=== PATIENT | male | born 1940 | race Caucasian/White ===

== ENCOUNTER 2020-08-20 08:53 | Emergency (ER) | payer OTHER, MEDICARE, SELFPAY ==
--- NOTE | ~2020-08-20 | CT_ITS ---
EXAMINATION: CT CERVICAL SPINE WITHOUT CONTRAST CLINICAL INFORMATION: Neck pain COMPARISON: None TECHNIQUE: Axial images through the cervical spine without contrast. Sagittal and coronal reconstructions on the technologist workstation were performed. This CT examination was performed using dose optimization techniques as appropriate, variously including the following: *Automated exposure control *Adjustment of mA and/or kV according to patient size (this includes techniques or standardized protocols for targeted exams where dose is matched to indication/reason for exam; i.e. extremities or head) *Use of iterative reconstruction technique DLP: 264 mGy-cm FINDINGS: Bone alignment is normal. No fracture or dislocation is seen. There is evidence of mild degenerative spondylosis at C5-C6 and C6-C7. There are degenerative changes at the C1 dens articulation. Prevertebral soft tissues are normal. There is bilateral carotid calcification. Visualized lung apices are clear. Spinal levels: C2-C3: No disc herniation protrusion or bulge. No spinal stenosis. C3-C4: There is mild disc bulge. No disc herniation is seen. No spinal stenosis. C4-C5: There is mild disc bulge. No disc herniation is seen. No spinal stenosis. C5-C6: There is diffuse disc bulge/disc osteophyte complex seen at C5-C6 No spinal stenosis is seen. C6-C7: There is diffuse disc bulge/disc osteophyte complex at C6-C7. No disc herniation is seen. No spinal stenosis. C7-T1: No disc herniation protrusion or bulge. No spinal stenosis. CT/CT cervical spine wo con IMPRESSION: Multilevel disc bulge, greatest at C5-C6 and C6-C7 with disc osteophyte complex. No disc herniation or spinal stenosis seen.
--- NOTE | 2020-08-20 09:18 | ED.NECK ---
HPI - Neck Pain/Injury General Chief Complaint: Neck Pain/Injury Stated Complaint: STIFF NECK PAIN Time Seen by Provider: 08/20/20 09:12 Source: patient Mode of arrival: ambulatory Limitations: no limitations History of Present Illness HPI Narrative: 79 yo male with hx of cellulitis comes in with 1 week of neck pain after sleeping in a friend's chair - he helped move many things and has been sleeping upright with his head slumped forward, states he cant take the pain any longer, no UE numbness/tingling complaint: neck pain Onset (ago): day(s) (7) Place: home Radiation: left lateral Severity: moderate and constant Quality: spasming Duration: constant Relieving factors: none Exacerbating factors: movement of neck Context: other (sleeping upright in a recliner after helping his friend move) Associated symptoms: other (mild leg swelling) Treatments prior to arrival: none Related Data Previous Rx's Medication Instructions Recorded cyclobenzaprine 10 mg PO TID PRN #14 tab 08/20/20 lidocaine 1 patch TOPICAL DAILY PRN #10 ea 08/20/20 Allergies Allergy/AdvReac Type Severity Reaction Status Date / Time No Known Allergies Allergy Unverified 01/01/20 15:07 Review of Systems Review of Systems: Constitutional : No Fever, No Chills ENT/Mouth : No Ear Pain, No Hoarseness, No sore throat, pos neck pain Eyes: No Eye Pain, No Swelling, No Redness, No Foreign Body Cardiovascular : No Chest Pain, No SOB, pos edema Respiratory : No Cough, No Dyspnea Gastrointestinal : No Nausea, No Vomiting, No Diarrhea, No abdominal Pain Genitourinary : No Dysuria, No Hematuria Musculoskeletal : no joint pain, No Myalgias, No Joint Swelling Skin : No Skin lacerations, No rash Neuro : No Weakness, No Numbness, No Loss of Consciousness, No Dizziness, No Headache Psych : No Anxiety/Panic, No Depression Heme/Lymph: no easy bruising, no Lymphadenopathy Endocrine : No Polyuria, No Polydipsia All other systems reviewed and are negative [facility] Past Medical History Attestation statement: The following information was validated with the patient. Medical History Cellulitis Social History Social History (Updated 08/20/20 @ 09:29 by Batsheva Thompson DO) Alcohol intake: never Smoking Status: Never smoker Use of substances other than those prescribed or required for medical reasons: No Advance Directives: Yes Advance Directives Information Provided: Yes Advance Directives on File: No Physical Exam Vital Signs: Vital Signs: Last Vital Signs Temp 98.1 F 08/20/20 09:21 Pulse 80 08/20/20 09:21 Resp 16 08/20/20 09:21 BP 156/93 H 08/20/20 09:21 Pulse Ox 99 08/20/20 09:21 Body Mass Index 31.8 Appearance: Alert. Oriented X3. No acute distress. Eyes: Pupils equal, round and reactive to light. ENT: Pharynx normal. Neck: leaning forward, no step offs, spasm felt on L side of cervical spine CVS: Normal heart rate and rhythm. Pulses normal. Respiratory: No respiratory distress. Breath sounds normal. Abdomen: Soft and nontender. Skin: Skin warm and dry. Normal skin color. Normal skin turgor. Extremities: mild 1+ pitting bilateral lower extremity edema. No calf ttp Neuro: Oriented X 3. No motor deficit. No sensory deficit. bilateral UE NV intact Course Course Course Narrative: CM involved can be DC home plan is for yeni to go home and sleep at his own home MDM - Neck Pain/Injury MDM Narrative Medical decision making narrative: 79 yo male with hx of cellulitis comes in with 1 week of neck pain after sleeping in a friend's chair - he helped move many things and has been sleeping upright with his head slumped forward, states he cant take the pain any longer, no UE numbness/tingling at this time will obtain basic labs, CT scan for mass/occult fracture likely spasm though from the way he is sleeping, PO pain medications, patient also has some mild LE dependent edema but denies dyspnea - again likely from his sleeping arrangement Lab Data Result diagrams: 08/20/20 09:34 08/20/20 09:34 Labs: Lab Results 08/20/20 08/20/20 08/20/20 Range/Units 09:34 09:34 09:34 WBC 10.3 (4.8-10.8) X10*3/uL RBC 3.12 L (4.60-5.80) X10*6/uL Hgb 10.1 L (14.0-18.0) g/dl Hct 31.8 L (42-52) % MCV 101.9 H (80-98) fL MCH 32.4 (27.0-33.0) pg MCHC 31.8 (31.0-36.0) g/dl RDW 15.2 (11.0-16.0) % Plt Count 231 (160-400) X10*3/uL MPV 9.5 (9.4-12.4) fL Immature Gran % (Auto) 0.5 H (0.0-0.4) % Neut % (Auto) 60.3 (45-73) % Lymph % (Auto) 23.2 (20-40) % [place] % (Auto) 10.8 (2-11) % Eos % (Auto) 4.8 H (0-4) % Baso % (Auto) 0.4 (0-2) % Lymph # (Auto) 2.4 (1.2-4.9) X10*3/uL [place] # (Auto) 1.1 (0.1-1.2) X10*3/uL Eos # (Auto) 0.5 H (0.0-0.4) X10*3/uL Baso # (Auto) 0.0 (0.0-0.2) X10*3/uL Abs Immat Gran (auto) 0.05 H (0.00-0.03) X10*3/uL Absolute Neuts (auto) 6.2 (2.0-8.3) X10*3/uL Absolute Nucleated RBC 0.000 (0.0-0.012) X10*3/uL Nucleated RBC % (auto) 0.0 (0.0-0.2) /100WBC Hold Blue Top SEE NOTE Sodium 138 (135-145) mmol/L Potassium 4.5 (3.3-5.1) mmol/L Chloride 105 (96-108) mmol/L Carbon Dioxide 24 (22-29) mmol/L Anion Gap 14 (12-20) BUN 23 H (9-16) mg/dL Creatinine 1.27 (0.5-1.4) mg/dL Estim Creat Clear Calc 38.4 Estimated GFR 54 Random Glucose 111 (60-115) mg/dL Calcium 8.8 (8.4-10.2) mg/dL Magnesium 2.0 (1.6-2.6) mg/dL Total Bilirubin 0.5 (0.0-1.0) mg/dL Direct Bilirubin 0.2 (0.0-0.5) mg/dL AST 55 H (5-37) U/L ALT 32 (0-40) U/L Alkaline Phosphatase 94 (39-117) U/L B-Natriuretic Peptide (<100) pg/mL Total Protein 7.8 (6.5-8.0) g/dL Albumin 3.6 (3.5-5.0) g/dL 08/20/20 Range/Units 09:34 WBC (4.8-10.8) X10*3/uL RBC (4.60-5.80) X10*6/uL Hgb (14.0-18.0) g/dl Hct (42-52) % MCV (80-98) fL MCH (27.0-33.0) pg MCHC (31.0-36.0) g/dl RDW (11.0-16.0) % Plt Count (160-400) X10*3/uL MPV (9.4-12.4) fL Immature Gran % (Auto) (0.0-0.4) % Neut % (Auto) (45-73) % Lymph % (Auto) (20-40) % [place] % (Auto) (2-11) % Eos % (Auto) (0-4) % Baso % (Auto) (0-2) % Lymph # (Auto) (1.2-4.9) X10*3/uL [place] # (Auto) (0.1-1.2) X10*3/uL Eos # (Auto) (0.0-0.4) X10*3/uL Baso # (Auto) (0.0-0.2) X10*3/uL Abs Immat Gran (auto) (0.00-0.03) X10*3/uL Absolute Neuts (auto) (2.0-8.3) X10*3/uL Absolute Nucleated RBC (0.0-0.012) X10*3/uL Nucleated RBC % (auto) (0.0-0.2) /100WBC Hold Blue Top Sodium (135-145) mmol/L Potassium (3.3-5.1) mmol/L Chloride (96-108) mmol/L Carbon Dioxide (22-29) mmol/L Anion Gap (12-20) BUN (9-16) mg/dL Creatinine (0.5-1.4) mg/dL Estim Creat Clear Calc Estimated GFR Random Glucose (60-115) mg/dL Calcium (8.4-10.2) mg/dL Magnesium (1.6-2.6) mg/dL Total Bilirubin (0.0-1.0) mg/dL Direct Bilirubin (0.0-0.5) mg/dL AST (5-37) U/L ALT (0-40) U/L Alkaline Phosphatase (39-117) U/L B-Natriuretic Peptide 183 H (<100) pg/mL Total Protein (6.5-8.0) g/dL Albumin (3.5-5.0) g/dL Discharge Plan Discharge Clinical Impression: Disc disorder of cervical region, Pedal edema Strain of neck muscle Qualifiers: Encounter type: initial encounter Qualified Code(s): S16.1XXA - Strain of muscle, fascia and tendon at neck level, initial encounter Patient Disposition: Home, Self-Care Instructions: Leg Edema (ED), Degenerative Disc Disease (ED) Additional Instructions: return to ED for any worsening symptoms or concerns KEEP YOUR LEGS ELEVATED STOP SLEEPING IN A CHAIR Prescriptions: New cyclobenzaprine 10 mg tablet 10 mg PO TID PRN (Reason: muscle spasm) Qty: 14 RF: 0 lidocaine 4 % adhesive patch,medicated 1 patch topical DAILY PRN (Reason: pain) Qty: 10 RF: 0 Referrals: Lebron Gifford MD [Primary Care Provider] - 5 days (IF NOT BETTER)
[2020-08-20 09:21] VITALS: BP 156/93; PULSE 80; RESP 16; TEMP 36.7; O2SAT 99; BMI 31.8
[2020-08-20 09:37] LABS: MANUAL DIFF FLAG NO
[2020-08-20 09:41] LABS: Basophils Percent Auto 0.4 % (0-2); Eosinophils Absolute Auto 0.5 X10*3/uL (0.0-0.4); Eosinophils Percent Auto 4.8 % (0-4); Hematocrit 31.8 % (42-52); Hemoglobin 10.1 g/dl (14.0-18.0); Imm Gran Abs Auto 0.05 X10*3/uL (0.00-0.03); Imm Gran Pct Auto 0.5 % (0.0-0.4); Lymphocytes Absolute Auto 2.4 X10*3/uL (1.2-4.9); Lymphocytes Percent Auto 23.2 % (20-40); Mean Corpuscular HGB Conc 31.8 g/dl (31.0-36.0); Mean Corpuscular Hemoglobin 32.4 pg (27.0-33.0); Mean Corpuscular Volume 101.9 fL (80-98); Mean Platelet Volume 9.5 fL (9.4-12.4); Monocytes Absolute Auto 1.1 X10*3/uL (0.1-1.2); Monocytes Percent Auto 10.8 % (2-11); Neutrophils Absolute Auto 6.2 X10*3/uL (2.0-8.3); Neutrophils Percent Auto 60.3 % (45-73); Platelet Count 231 X10*3/uL (160-400); Red Blood Count 3.12 X10*6/uL (4.60-5.80); Red Cell Distribution Width 15.2 % (11.0-16.0); White Blood Count 10.3 X10*3/uL (4.8-10.8)
[2020-08-20] MEDS: Lidocaine 4 % Patch ADH..PATCH 1 PATCH TRANSDERMA (09:51)
[2020-08-20] MEDS: HYDROcodone Bit/Acetam 5/325 TABLET 1 TAB PO (09:51)
[2020-08-20 10:04] LABS: Alanine Aminotransferase 32 U/L (0-40); Albumin Level 3.6 g/dL (3.5-5.0); Alkaline Phosphatase 94 U/L (39-117); Anion Gap 14 (12-20); Aspartate Amino Transferase 55 U/L (5-37); Bilirubin Direct 0.2 mg/dL (0.0-0.5); Bilirubin Total 0.5 mg/dL (0.0-1.0); Blood Urea Nitrogen 23 mg/dL (9-16); Calcium 8.8 mg/dL (8.4-10.2); Carbon Dioxide 24 mmol/L (22-29); Chloride 105 mmol/L (96-108); Creatinine Clr Calc Pharmacy 38.4; Estimated Glomerular Filt Rate 54; Glucose Random 111 mg/dL (60-115); Potassium 4.5 mmol/L (3.3-5.1); Sodium 138 mmol/L (135-145); Total Protein 7.8 g/dL (6.5-8.0)
[2020-08-20 10:10] LABS: B Type Natriuretic Peptide 183 pg/mL (<100)
== END 2020-08-20 12:10 | disposition home or self-care (01) ==
PROVIDERS: Emergency Provider Emergency Medicine; PCP Internal Medicine
DX: M50.31 Other cervical disc degeneration, high cervical region (principal); R60.0 Localized edema; S16.1XXA Strain of muscle, fascia and tendon at neck level, initial encounter; X50.1XXA Overexertion from prolonged static or awkward postures, initial encounter; Y93.84 Activity, sleeping; Y92.019 Unspecified place in single-family (private) house as the place of occurrence of the external cause; Y99.9 Unspecified external cause status
CPT/HCPCS: 36415; 72125; 80048; 80076; 83735; 83880; 85025; 99284

== ENCOUNTER 2020-08-24 21:31 | Emergency (ER) | payer OTHER, MEDICARE, SELFPAY ==
[2020-08-24 22:03] VITALS: BP 114/80; BP 138/81; PULSE 103; PULSE 110; RESP 18; TEMP 36.8; O2SAT 100; O2SAT 96; BMI 23.6
[2020-08-24 22:07] LABS: Glucose, Whole Blood 117 mg/dL (60-115)
[2020-08-24 22:09] VITALS: BP 138/81; PULSE 102; RESP 18; TEMP 36.8; O2SAT 97
--- NOTE | 2020-08-24 22:37 | PC.NURSE ---
PT SON, GRETTA, PHONE NUMBER [phone]
--- NOTE | 2020-08-24 22:38 | ECG_ITS ---
Test Reason : AMS Blood Pressure : / mmHG Vent. Rate : 096 BPM Atrial Rate : 096 BPM P-R Int : 198 ms QRS Dur : 136 ms QT Int : 408 ms P-R-T Axes : 044 -23 109 degrees QTc Int : 515 ms Normal sinus rhythm Left bundle branch block Abnormal ECG No previous ECGs available Referred By: Laureen Mendiola Electronically Signed By:Robert Sampson
--- NOTE | 2020-08-24 22:41 | ED_ITS ---
HPI - General Adult General Chief complaint: General Medical Stated complaint: WEAKNESS Time Seen by Provider: 08/24/20 22:19 Source: patient Mode of arrival: EMS Limitations: no limitations History of Present Illness HPI narrative: Patient comes to emergency room complaining of generalized weakness and a fall. Patient states that over last few days, he has been helping a friend move of his apartment, has been carrying boxes, has not been eating well. Patient states this afternoon, patient was walking, tripped, fell to the ground, did not hit his head, did not lose consciousness. Patient had a hard time getting up by himself, states he was feeling weak, denies pain. Patient denies being on blood thinners. Patient denies using drugs. Patient states that he has left-sided neck pain, he was seen here on August 20, diagnosed with muscular strain, patient has been sleeping in a friend's house on the chair , denies any trauma. Related Data Previous Rx's Medication Instructions Recorded cyclobenzaprine 10 mg PO TID PRN #14 tab 08/20/20 lidocaine 1 patch TOPICAL DAILY PRN #10 ea 08/20/20 cephalexin [Keflex] 750 mg PO BID #14 cap 08/25/20 doxycycline hyclate 100 mg PO DAILY #14 tab 08/25/20 Allergies Allergy/AdvReac Type Severity Reaction Status Date / Time No Known Allergies Allergy Verified 08/24/20 22:03 Review of Systems Review of Systems: Constitutional : Denies Fever, No Chills, No Night Sweats, complaining of generalized weakness ENT/Mouth : No Hearing loss, No Ear Pain, No Nasal Congestion, No Sinus Pain, No Hoarseness, No sore throat, No Rhinorrhea, No Swallowing Difficulty Eyes: No Eye Pain, No Swelling, No Redness, No Foreign Body, No Discharge, No Vision Changes Cardiovascular : No Chest Pain, No SOB, No Dyspnea on Exertion, No Orthopnea, complaining of chronic bilateral lower extremity edema, No Palpitations Respiratory : No Cough, No Sputum, No Wheezing, No Smoke Exposure, No Dyspnea Gastrointestinal : No Nausea, No Vomiting, No Diarrhea, No Constipation, No abdominal Pain, No Hematochezia, No Melena Genitourinary : no irregular bleeding, No Dysuria, No Urinary Frequency, No Hematuria, No Urinary Incontinence, No Urgency, No Flank Pain, No Urinary Flow Changes, No Hesitancy Musculoskeletal : No joint pain, No Myalgias, No Joint Swelling Skin : No Skin Lesions, No rash Neuro : No Weakness, No Numbness, No Paresthesias, No Loss of Consciousness, No Dizziness, No Headache Psych : No Anxiety/Panic, No Depression, No SI/HI/AH/VH, No Social Issues, Heme/Lymph: No Bruising, No Bleeding,No Lymphadenopathy Endocrine : No Polyuria, No Polydipsia, No Temperature Intolerance [facility] Past Medical History Medical History Cellulitis Social History Social History (Updated 08/20/20 @ 09:29 by Batsheva Thompson DO) Alcohol intake: former Smoking Status: Never smoker Use of substances other than those prescribed or required for medical reasons: No Advance Directives: No Advance Directives Information Provided: Yes Physical Exam Vital Signs: Vital Signs: Last Vital Signs Temp 97.2 F 08/24/20 23:46 Pulse 80 08/25/20 03:26 Resp 16 08/25/20 03:26 BP 115/69 08/25/20 03:26 Pulse Ox 97 08/25/20 03:26 Body Mass Index 23.6 Appearance: Alert. Oriented X3. No acute distress. Disheveled Eyes: Pupils equal, round and reactive to light. ENT: Pharynx normal. Neck: Normal inspection. Neck supple. Mild pain to palpation over the left sternocleidomastoid muscle CVS: Normal heart rate and rhythm. Pulses normal. Normal S1 and S2 Respiratory: No respiratory distress. Breath sounds normal. No Wheezing. No rales Abdomen: Soft and nontender. No rigidity. No distention. good BS x4 Skin: Skin warm and dry. Normal skin color. Normal skin turgor. Extremities: +1 bilateral pitting edema, bilateral lower extremity skin changes per patient at baseline/chronic fungal infection per patient? No Lacerations. Neuro: Oriented X 3. No motor deficit. No sensory deficit. Moving all extermities. No slurred speech. Course Course Course Narrative: Physician observation started that for 20 in the morning. Patient's nurse attempted weakening of the patient to see if the patient is ambulatory. Patient does wake up, but he is too somnolent and somewhat confused when walking up. Ambulation was not attempted. Patient has a troponin pending at 06:30 in the morning. Patient is otherwise stable, normal vitals. Patient is alert and oriented x3, states that he does not want to be seen by case management or by physical therapy. Patient would like to be discharged patient's son was at bedside earlier today, the son agrees to machine operator picker the patient and give him a ride home. Pt received one dose of doxy and keflex, which was entered by mistake in pt's orders. Cellulitis not suspected Trop #2 pending, pt is asymptomatic Patient's nurse and I try walking with the patient, patient states that his legs are very weak, stumbles. Unsafe to discharge. Patient agrees to be seen by Physical therapy and Case Management. Sign out given to Dr. Oliveira Medical Decision Making Lab Data Result diagrams: 08/24/20 22:52 08/25/20 03:37 Labs: Lab Results 08/24/20 08/24/20 08/24/20 Range/Units 22:01 22:52 22:52 WBC 7.4 (4.8-10.8) X10*3/uL RBC 3.07 L (4.60-5.80) X10*6/uL Hgb 9.8 L (14.0-18.0) g/dl Hct 30.2 L (42-52) % MCV 98.4 H (80-98) fL MCH 31.9 (27.0-33.0) pg MCHC 32.5 (31.0-36.0) g/dl RDW 14.3 (11.0-16.0) % Plt Count 240 (160-400) X10*3/uL MPV 9.3 L (9.4-12.4) fL Immature Gran % (Auto) 0.8 H (0.0-0.4) % Neut % (Auto) 62.6 (45-73) % Lymph % (Auto) 21.4 (20-40) % [place] % (Auto) 10.5 (2-11) % Eos % (Auto) 4.3 H (0-4) % Baso % (Auto) 0.4 (0-2) % Lymph # (Auto) 1.6 (1.2-4.9) X10*3/uL [place] # (Auto) 0.8 (0.1-1.2) X10*3/uL Eos # (Auto) 0.3 (0.0-0.4) X10*3/uL Baso # (Auto) 0.0 (0.0-0.2) X10*3/uL Abs Immat Gran (auto) 0.06 H (0.00-0.03) X10*3/uL Absolute Neuts (auto) 4.6 (2.0-8.3) X10*3/uL Absolute Nucleated RBC 0.000 (0.0-0.012) X10*3/uL Nucleated RBC % (auto) 0.0 (0.0-0.2) /100WBC Sodium 134 L (135-145) mmol/L Potassium 4.6 (3.3-5.1) mmol/L Chloride 99 (96-108) mmol/L Carbon Dioxide 23 (22-29) mmol/L Anion Gap 17 (12-20) BUN 35 H D (9-16) mg/dL Creatinine 1.52 H (0.5-1.4) mg/dL Estim Creat Clear Calc 39.3 Estimated GFR 44 POC Glucose 117 H (60-115) mg/dL Random Glucose 100 (60-115) mg/dL Calcium 8.9 (8.4-10.2) mg/dL Total Bilirubin 0.4 (0.0-1.0) mg/dL Direct Bilirubin 0.3 (0.0-0.5) mg/dL AST 29 D (5-37) U/L ALT 29 (0-40) U/L Alkaline Phosphatase 80 (39-117) U/L Troponin I High Sens (<3.5-35.0) ng/L B-Natriuretic Peptide (<100) pg/mL Total Protein 7.5 (6.5-8.0) g/dL Albumin 3.5 (3.5-5.0) g/dL TSH (0.32-4.0) uIU/mL Free T4 (0.71-1.85) ng/dL Urine Color Urine Appearance Urine pH (5.0-8.0) Ur Specific [place] (1.005-1.025) Urine Protein (NEG-TRACE) MG/DL Urine Glucose (UA) (NEG) MG/DL Urine Ketones (NEG) MG/DL Urine Blood (NEG) Urine Nitrite (NEG) Ur Leukocyte Esterase (NEG) Stool Occult Blood (NEGATIVE) Urine Opiates Screen (Not Detect) Ur Barbiturates Screen (Not Detect) Ur Phencyclidine Scrn (Not Detect) Ur Amphetamines Screen (Not Detect) U Benzodiazepines Scrn (Not Detect) Urine Cocaine Screen (Not Detect) U Marijuana (THC) Screen (Not Detect) Ethyl Alcohol mg/dL 08/24/20 08/24/20 08/24/20 Range/Units 22:52 22:52 22:52 WBC (4.8-10.8) X10*3/uL RBC (4.60-5.80) X10*6/uL Hgb (14.0-18.0) g/dl Hct (42-52) % MCV (80-98) fL MCH (27.0-33.0) pg MCHC (31.0-36.0) g/dl RDW (11.0-16.0) % Plt Count (160-400) X10*3/uL MPV (9.4-12.4) fL Immature Gran % (Auto) (0.0-0.4) % Neut % (Auto) (45-73) % Lymph % (Auto) (20-40) % [place] % (Auto) (2-11) % Eos % (Auto) (0-4) % Baso % (Auto) (0-2) % Lymph # (Auto) (1.2-4.9) X10*3/uL [place] # (Auto) (0.1-1.2) X10*3/uL Eos # (Auto) (0.0-0.4) X10*3/uL Baso # (Auto) (0.0-0.2) X10*3/uL Abs Immat Gran (auto) (0.00-0.03) X10*3/uL Absolute Neuts (auto) (2.0-8.3) X10*3/uL Absolute Nucleated RBC (0.0-0.012) X10*3/uL Nucleated RBC % (auto) (0.0-0.2) /100WBC Sodium (135-145) mmol/L Potassium (3.3-5.1) mmol/L Chloride (96-108) mmol/L Carbon Dioxide (22-29) mmol/L Anion Gap (12-20) BUN (9-16) mg/dL Creatinine (0.5-1.4) mg/dL Estim Creat Clear Calc Estimated GFR POC Glucose (60-115) mg/dL Random Glucose (60-115) mg/dL Calcium (8.4-10.2) mg/dL Total Bilirubin (0.0-1.0) mg/dL Direct Bilirubin (0.0-0.5) mg/dL AST (5-37) U/L ALT (0-40) U/L Alkaline Phosphatase (39-117) U/L Troponin I High Sens (<3.5-35.0) ng/L B-Natriuretic Peptide 155 H (<100) pg/mL Total Protein (6.5-8.0) g/dL Albumin (3.5-5.0) g/dL TSH 11.00 H (0.32-4.0) uIU/mL Free T4 1.11 (0.71-1.85) ng/dL Urine Color Urine Appearance Urine pH (5.0-8.0) Ur Specific [place] (1.005-1.025) Urine Protein (NEG-TRACE) MG/DL Urine Glucose (UA) (NEG) MG/DL Urine Ketones (NEG) MG/DL Urine Blood (NEG) Urine Nitrite (NEG) Ur Leukocyte Esterase (NEG) Stool Occult Blood (NEGATIVE) Urine Opiates Screen (Not Detect) Ur Barbiturates Screen (Not Detect) Ur Phencyclidine Scrn (Not Detect) Ur Amphetamines Screen (Not Detect) U Benzodiazepines Scrn (Not Detect) Urine Cocaine Screen (Not Detect) U Marijuana (THC) Screen (Not Detect) Ethyl Alcohol < 10 mg/dL 08/25/20 08/25/20 08/25/20 Range/Units 00:00 00:00 00:00 WBC (4.8-10.8) X10*3/uL RBC (4.60-5.80) X10*6/uL Hgb (14.0-18.0) g/dl Hct (42-52) % MCV (80-98) fL MCH (27.0-33.0) pg MCHC (31.0-36.0) g/dl RDW (11.0-16.0) % Plt Count (160-400) X10*3/uL MPV (9.4-12.4) fL Immature Gran % (Auto) (0.0-0.4) % Neut % (Auto) (45-73) % Lymph % (Auto) (20-40) % [place] % (Auto) (2-11) % Eos % (Auto) (0-4) % Baso % (Auto) (0-2) % Lymph # (Auto) (1.2-4.9) X10*3/uL [place] # (Auto) (0.1-1.2) X10*3/uL Eos # (Auto) (0.0-0.4) X10*3/uL Baso # (Auto) (0.0-0.2) X10*3/uL Abs Immat Gran (auto) (0.00-0.03) X10*3/uL Absolute Neuts (auto) (2.0-8.3) X10*3/uL Absolute Nucleated RBC (0.0-0.012) X10*3/uL Nucleated RBC % (auto) (0.0-0.2) /100WBC Sodium (135-145) mmol/L Potassium (3.3-5.1) mmol/L Chloride (96-108) mmol/L Carbon Dioxide (22-29) mmol/L Anion Gap (12-20) BUN (9-16) mg/dL Creatinine (0.5-1.4) mg/dL Estim Creat Clear Calc Estimated GFR POC Glucose (60-115) mg/dL Random Glucose (60-115) mg/dL Calcium (8.4-10.2) mg/dL Total Bilirubin (0.0-1.0) mg/dL Direct Bilirubin (0.0-0.5) mg/dL AST (5-37) U/L ALT (0-40) U/L Alkaline Phosphatase (39-117) U/L Troponin I High Sens (<3.5-35.0) ng/L B-Natriuretic Peptide (<100) pg/mL Total Protein (6.5-8.0) g/dL Albumin (3.5-5.0) g/dL TSH (0.32-4.0) uIU/mL Free T4 (0.71-1.85) ng/dL Urine Color YELLOW Urine Appearance CLEAR Urine pH 6.0 (5.0-8.0) Ur Specific [place] 1.020 (1.005-1.025) Urine Protein NEG (NEG-TRACE) MG/DL Urine Glucose (UA) NEG (NEG) MG/DL Urine Ketones 5 (NEG) MG/DL Urine Blood NEG (NEG) Urine Nitrite NEG (NEG) Ur Leukocyte Esterase NEG (NEG) Stool Occult Blood NEGATIVE (NEGATIVE) Urine Opiates Screen Not Detected (Not Detect) Ur Barbiturates Screen Not Detected (Not Detect) Ur Phencyclidine Scrn Not Detected (Not Detect) Ur Amphetamines Screen Not Detected (Not Detect) U Benzodiazepines Scrn Not Detected (Not Detect) Urine Cocaine Screen Not Detected (Not Detect) U Marijuana (THC) Screen Not Detected (Not Detect) Ethyl Alcohol mg/dL 08/25/20 08/25/20 Range/Units 03:37 03:37 WBC (4.8-10.8) X10*3/uL RBC (4.60-5.80) X10*6/uL Hgb (14.0-18.0) g/dl Hct (42-52) % MCV (80-98) fL MCH (27.0-33.0) pg MCHC (31.0-36.0) g/dl RDW (11.0-16.0) % Plt Count (160-400) X10*3/uL MPV (9.4-12.4) fL Immature Gran % (Auto) (0.0-0.4) % Neut % (Auto) (45-73) % Lymph % (Auto) (20-40) % [place] % (Auto) (2-11) % Eos % (Auto) (0-4) % Baso % (Auto) (0-2) % Lymph # (Auto) (1.2-4.9) X10*3/uL [place] # (Auto) (0.1-1.2) X10*3/uL Eos # (Auto) (0.0-0.4) X10*3/uL Baso # (Auto) (0.0-0.2) X10*3/uL Abs Immat Gran (auto) (0.00-0.03) X10*3/uL Absolute Neuts (auto) (2.0-8.3) X10*3/uL Absolute Nucleated RBC (0.0-0.012) X10*3/uL Nucleated RBC % (auto) (0.0-0.2) /100WBC Sodium 133 L (135-145) mmol/L Potassium 4.0 (3.3-5.1) mmol/L Chloride 103 (96-108) mmol/L Carbon Dioxide 22 (22-29) mmol/L Anion Gap 12 (12-20) BUN 32 H (9-16) mg/dL Creatinine 1.28 (0.5-1.4) mg/dL Estim Creat Clear Calc 46.7 Estimated GFR 54 POC Glucose (60-115) mg/dL Random Glucose 95 (60-115) mg/dL Calcium 7.9 L D (8.4-10.2) mg/dL Total Bilirubin (0.0-1.0) mg/dL Direct Bilirubin (0.0-0.5) mg/dL AST (5-37) U/L ALT (0-40) U/L Alkaline Phosphatase (39-117) U/L Troponin I High Sens 23.5 (<3.5-35.0) ng/L B-Natriuretic Peptide (<100) pg/mL Total Protein (6.5-8.0) g/dL Albumin (3.5-5.0) g/dL TSH (0.32-4.0) uIU/mL Free T4 (0.71-1.85) ng/dL Urine Color Urine Appearance Urine pH (5.0-8.0) Ur Specific [place] (1.005-1.025) Urine Protein (NEG-TRACE) MG/DL Urine Glucose (UA) (NEG) MG/DL Urine Ketones (NEG) MG/DL Urine Blood (NEG) Urine Nitrite (NEG) Ur Leukocyte Esterase (NEG) Stool Occult Blood (NEGATIVE) Urine Opiates Screen (Not Detect) Ur Barbiturates Screen (Not Detect) Ur Phencyclidine Scrn (Not Detect) Ur Amphetamines Screen (Not Detect) U Benzodiazepines Scrn (Not Detect) Urine Cocaine Screen (Not Detect) U Marijuana (THC) Screen (Not Detect) Ethyl Alcohol mg/dL ECG Data Attestation: I personally reviewed and interpreted this ECG as follows: (Centered rhythm, heart rate 96, left bundle branch block, QTC 515, no previous EKGs available for comparison) Discharge Plan Discharge Clinical Impression: Weakness Prescriptions: New doxycycline hyclate 100 mg tablet 100 mg PO DAILY Qty: 14 RF: 0 cephalexin [Keflex] 750 mg capsule 750 mg PO BID Qty: 14 RF: 0 No Action cyclobenzaprine 10 mg tablet 10 mg PO TID PRN (Reason: muscle spasm) Qty: 14 RF: 0 lidocaine 4 % adhesive patch,medicated 1 patch topical DAILY PRN (Reason: pain) Qty: 10 RF: 0
[2020-08-24 22:49] VITALS: BP 149/90; PULSE 98; RESP 12; O2SAT 98
--- NOTE | 2020-08-24 22:52 | PC.NURSE ---
Pt son at bedside, EKG and labs currently being obtained. Pt IVF administered as ordered. Pt stretcher in lowest locked position, rails raised, call davis within reach.
[2020-08-24] MEDS: 0.9 % Sodium Chloride 1,000 ML 999 ML IVCONT (22:53)
[2020-08-24 22:58] LABS: MANUAL DIFF FLAG NO
[2020-08-24 22:59] LABS: Basophils Percent Auto 0.4 % (0-2); Eosinophils Absolute Auto 0.3 X10*3/uL (0.0-0.4); Eosinophils Percent Auto 4.3 % (0-4); Hematocrit 30.2 % (42-52); Hemoglobin 9.8 g/dl (14.0-18.0); Imm Gran Abs Auto 0.06 X10*3/uL (0.00-0.03); Imm Gran Pct Auto 0.8 % (0.0-0.4); Lymphocytes Absolute Auto 1.6 X10*3/uL (1.2-4.9); Lymphocytes Percent Auto 21.4 % (20-40); Mean Corpuscular HGB Conc 32.5 g/dl (31.0-36.0); Mean Corpuscular Hemoglobin 31.9 pg (27.0-33.0); Mean Corpuscular Volume 98.4 fL (80-98); Mean Platelet Volume 9.3 fL (9.4-12.4); Monocytes Absolute Auto 0.8 X10*3/uL (0.1-1.2); Monocytes Percent Auto 10.5 % (2-11); Neutrophils Absolute Auto 4.6 X10*3/uL (2.0-8.3); Neutrophils Percent Auto 62.6 % (45-73); Platelet Count 240 X10*3/uL (160-400); Red Blood Count 3.07 X10*6/uL (4.60-5.80); Red Cell Distribution Width 14.3 % (11.0-16.0); White Blood Count 7.4 X10*3/uL (4.8-10.8)
[2020-08-24 23:25] LABS: Alanine Aminotransferase 29 U/L (0-40); Albumin Level 3.5 g/dL (3.5-5.0); Alkaline Phosphatase 80 U/L (39-117); Anion Gap 17 (12-20); Aspartate Amino Transferase 29 U/L (5-37); Bilirubin Direct 0.3 mg/dL (0.0-0.5); Bilirubin Total 0.4 mg/dL (0.0-1.0); Blood Urea Nitrogen 35 mg/dL (9-16); Calcium 8.9 mg/dL (8.4-10.2); Carbon Dioxide 23 mmol/L (22-29); Chloride 99 mmol/L (96-108); Creatinine Clr Calc Pharmacy 39.3; Estimated Glomerular Filt Rate 44; Glucose Random 100 mg/dL (60-115); Potassium 4.6 mmol/L (3.3-5.1); Sodium 134 mmol/L (135-145); Total Protein 7.5 g/dL (6.5-8.0)
[2020-08-24 23:31] LABS: B Type Natriuretic Peptide 155 pg/mL (<100); Ethanol < 10 mg/dL
[2020-08-24 23:46] VITALS: BP 138/84; PULSE 88; RESP 22; TEMP 36.2; O2SAT 98
[2020-08-25] VITALS (8 sets, daily range): BP systolic 113–131; BP diastolic 64–80; PULSE 74–96; RESP 15–20; TEMP 36.7; O2SAT 94–99
--- NOTE | 2020-08-25 00:02 | PC.NURSE ---
PATIENT WAS REPOSITION BY THIS PCT AND NELLY GALLO .
--- NOTE | 2020-08-25 00:03 | PC.NURSE ---
STRAIGHT CATH WAS DONE BY THIS PCT ,OUTPUT FROM STRAIGHT CATH IS 500 ML
[2020-08-25 00:17] LABS: Glucose Urine UA NEG (NEG); Leukocyte Esterase Urine NEG (NEG); Nitrite Urine NEG (NEG); Urine Blood NEG (NEG); Urine Ketones 5 MG/DL (NEG); Urine Protein NEG (NEG-TRACE)
[2020-08-25 00:17] LABS: Free T4 (Free Thyroxine) 1.11 ng/dL (0.71-1.85)
[2020-08-25 00:18] LABS: Appearance Urine CLEAR; Color Urine YELLOW; OBS Int Ctl Valid YES; OBS1 NEGATIVE (NEGATIVE); UACC Culture Trigger NO
[2020-08-25 00:43] LABS: Amphetamine Screen Urine Not Detected (Not Detect); Barbiturates, Urine Not Detected (Not Detect); Benzodiazepines Screen Urine Not Detected (Not Detect); Cannabinoid Screen Urine Not Detected (Not Detect); Cocaine Screen Urine Not Detected (Not Detect); Opiate Screen Urine Not Detected (Not Detect); Phencyclidine Screen Urine Not Detected (Not Detect)
--- NOTE | 2020-08-25 00:47 | PC.NURSE ---
PATIENT STATED HE WAS HUNGRY ,PATIENT HAD A [employer] FISH SANDWICH AND A DIET FRANCY PRISCILA
[2020-08-25] MEDS: cephALEXin 500 MG CAPSULE PO (02:14)
[2020-08-25 04:08] LABS: Anion Gap 12 (12-20); Blood Urea Nitrogen 32 mg/dL (9-16); Calcium 7.9 mg/dL (8.4-10.2); Carbon Dioxide 22 mmol/L (22-29); Chloride 103 mmol/L (96-108); Creatinine Clr Calc Pharmacy 46.7; Estimated Glomerular Filt Rate 54; Glucose Random 95 mg/dL (60-115); Sodium 133 mmol/L (135-145)
[2020-08-25 04:10] LABS: Troponin-I High Sensitivity 23.5 ng/L (<3.5-35.0)
--- NOTE | 2020-08-25 04:25 | PC.NURSE ---
Plan for repeat trop at 0630. Dispo pending results.
--- NOTE | 2020-08-25 06:25 | PC.NURSE ---
This RN and Dr Mendiola attempt ambulation trial, pt unable to ambulate independently. With two person assist, pt gait unsteady. Pt returned to stretcher without incidence. As pt returns to stretcher, this RN appreciates mild wheeze. Dr Mendiola reassess lung sounds, states wheeze is very mild and does not necessitate a CXR at this time. Plan for CM and PT eval, pt aware and agreeable.
--- NOTE | 2020-08-25 06:52 | PC.NURSE ---
This RN called and left message for patient's son, per son's request, to update on plan for PT and CM. Pt also requested that son be made aware that pt was supposed to have outpatient PT appt at [facility] in [place] at 11am today; pt requests that son cancel appt. Son encouraged to call HH with any questions/concerns.
[2020-08-25 07:13] LABS: COVID-19 Test Negative (Negative); IDNOW Serial# 9DD0AD1C
--- NOTE | 2020-08-25 08:57 | PC.NURSE ---
pt awaiting PT evaluation for placement. pt currently sleeping on stretcher, no distress observed.
--- NOTE | 2020-08-25 10:34 | PC.NURSE ---
P.T. at bedside with patient.
[2020-08-25] MEDS: traMADoL HCL 50 MG TABLET PO ×2 (11:05→20:57)
--- NOTE | 2020-08-25 11:10 | PC.NURSE ---
pt c/o chronic left neck pain, states exacerbated with recent recurrent lifting. pt states used to take tramadol 1 tablet with good effect. Provider aware, orders recieved.
--- NOTE | 2020-08-25 11:13 | PC.NURSE ---
Shaan (friend) contact: [phone]
--- NOTE | 2020-08-25 12:46 | MHC.CM.ED ---
Received case management consult overnight from Dr Mendiola. Patient came to ER due to weakness. Work up essentially negative. Physical therapy eval completed. Short term rehab is being recommended. Met with patient in regards to discharge planning. Patient lives alone and had no services prior to coming to the ER. PCP verified as Dr Alarcon. List of facilities provided from [facility]. Patient requests referral to [facility]. Referral made via [facility]. Continue to monitor for d/c needs.
--- NOTE | 2020-08-25 13:15 | MHC.CM.ED ---
[facility] states patient's primary insurance is [employer]. [facility] is going to attempt to obtain insurance auth. It is unlikely insurance auth will be obtained tonight. Anticipate patient will remain in ER overnight and go to [facility] tomorrow. Continue to monitor for d/c needs.
--- NOTE | 2020-08-25 13:20 | PC.NURSE ---
pt T & R, linen refreshed. pt set up for lunch. no distress observed.
--- NOTE | 2020-08-25 13:45 | PC.NURSE ---
pt ate 100% of lunch, no complaints, no distress observed.
--- NOTE | 2020-08-25 15:04 | PC.NURSE ---
Report given to NELLY Carrillo. pt presentation, VS trends, and plan reviewed.
--- NOTE | 2020-08-25 20:31 | PC.NURSE ---
pt given sandwich, pudding and soda. pt able to use urinal as needed. pt seems forgetful, carried pen and paper with lists to remind him.
--- NOTE | 2020-08-25 21:45 | MHC.CM.ED ---
CM met with pt. Alert and pleasant. Updated on disposition. Pt aware we are waiting on insurance authorization. Has a bed at [facility]. Given reagan regina. CM to follow for d/c needs
[2020-08-26] VITALS (7 sets, daily range): BP systolic 91–143; BP diastolic 52–85; PULSE 71–90; RESP 13–20; O2SAT 94–98
--- NOTE | 2020-08-26 07:58 | PC.NURSE ---
Pt alert, oriented, pleasantly confused, VSS, neuros intact. Ate breakfast, currently resting in room awaiting Case Management
[2020-08-26] MEDS: lisinopriL 10 MG TABLET PO (08:16)
[2020-08-26] MEDS: traMADoL HCL 50 MG TABLET PO (08:17)
--- NOTE | 2020-08-26 11:47 | PC.NURSE ---
pT RESTING QUIETLY. AWAITING LUNCH TRAY. AWAITING PRIOR AUTH FOR [facility] PLACEMENT
--- NOTE | 2020-08-26 14:24 | PC.NURSE ---
Pt had unsteady shuffling gait during ambulation. ED provider notified.
--- NOTE | 2020-08-26 16:01 | PC.NURSE ---
Report given to NELLY Nagel at [facility].
== END 2020-08-26 17:03 | disposition skilled nursing facility (03) ==
PROVIDERS: Emergency Provider Emergency Medicine; PCP Internal Medicine
DX: R53.1 Weakness (principal); R26.81 Unsteadiness on feet; M54.2 Cervicalgia; Z91.81 History of falling; Z20.822 Contact with and (suspected) exposure to COVID-19
CPT/HCPCS: 36415; 51701; 80048; 80076; 80307; 80320; 81003; 82272; 82947; 83880; 84439; 84443; 84484; 85025; 87635; 93005; 96360; 97162; 99285

== ENCOUNTER 2020-08-27 07:14 | Outpatient (REF) | payer MEDICARE, SELFPAY ==
[2020-08-27 07:41] LABS: Hematocrit 29.5 % (42-52); Hemoglobin 9.5 g/dl (14.0-18.0); Mean Corpuscular HGB Conc 32.2 g/dl (31.0-36.0); Mean Corpuscular Hemoglobin 31.9 pg (27.0-33.0); Platelet Count 247 X10*3/uL (160-400); Red Blood Count 2.98 X10*6/uL (4.60-5.80); Red Cell Distribution Width 14.1 % (11.0-16.0); White Blood Count 8.1 X10*3/uL (4.8-10.8)
[2020-08-27 08:00] LABS: Alanine Aminotransferase 22 U/L (0-40); Alkaline Phosphatase 76 U/L (39-117); Anion Gap 12 (12-20); Aspartate Amino Transferase 24 U/L (5-37); Bilirubin Total 0.2 mg/dL (0.0-1.0); Blood Urea Nitrogen 27 mg/dL (9-16); Calcium 8.5 mg/dL (8.4-10.2); Carbon Dioxide 26 mmol/L (22-29); Chloride 102 mmol/L (96-108); Estimated Glomerular Filt Rate 52; Glucose Random 101 mg/dL (60-115); Potassium 4.7 mmol/L (3.3-5.1); Sodium 135 mmol/L (135-145); Total Protein 6.4 g/dL (6.5-8.0)
== END 2020-08-27 07:15 | disposition home or self-care (01) ==
LOC: HO.MMNH1L 07:14
PROVIDERS: Visit Provider Family Medicine
DX: R53.1 Weakness (principal); R53.83 Other fatigue
CPT/HCPCS: 36415; 80053; 85027

== ENCOUNTER 2020-08-30 00:32 | Outpatient (REF) | payer MEDICARE, SELFPAY ==
[2020-08-30 08:11] LABS: Hematocrit 29.1 % (42-52); Hemoglobin 9.2 g/dl (14.0-18.0); Mean Corpuscular HGB Conc 31.6 g/dl (31.0-36.0); Mean Corpuscular Hemoglobin 31.4 pg (27.0-33.0); Mean Corpuscular Volume 99.3 fL (80-98); Mean Platelet Volume 9.8 fL (9.4-12.4); Platelet Count 291 X10*3/uL (160-400); Red Blood Count 2.93 X10*6/uL (4.60-5.80); Red Cell Distribution Width 14.6 % (11.0-16.0); White Blood Count 9.2 X10*3/uL (4.8-10.8)
[2020-08-30 08:29] LABS: Anion Gap 12 (12-20); Blood Urea Nitrogen 23 mg/dL (9-16); Calcium 8.3 mg/dL (8.4-10.2); Carbon Dioxide 26 mmol/L (22-29); Chloride 103 mmol/L (96-108); Estimated Glomerular Filt Rate > 60; Glucose Random 94 mg/dL (60-115); Potassium 5.1 mmol/L (3.3-5.1); Sodium 136 mmol/L (135-145)
== END 2020-08-30 00:33 | disposition home or self-care (01) ==
LOC: HO.MMNH1L 00:32
PROVIDERS: Visit Provider Family Medicine
DX: R53.1 Weakness (principal); R53.83 Other fatigue
CPT/HCPCS: 36415; 80048; 85027

== ENCOUNTER 2020-09-06 01:05 | Outpatient (REF) | payer MEDICARE, SELFPAY ==
[2020-09-06 06:54] LABS: Hematocrit 28.6 % (42-52); Hemoglobin 9.2 g/dl (14.0-18.0); Mean Corpuscular HGB Conc 32.2 g/dl (31.0-36.0); Mean Corpuscular Hemoglobin 32.1 pg (27.0-33.0); Mean Corpuscular Volume 99.7 fL (80-98); Mean Platelet Volume 9.8 fL (9.4-12.4); Platelet Count 330 X10*3/uL (160-400); Red Blood Count 2.87 X10*6/uL (4.60-5.80); Red Cell Distribution Width 14.6 % (11.0-16.0); White Blood Count 8.2 X10*3/uL (4.8-10.8)
[2020-09-06 08:03] LABS: Anion Gap 13 (12-20); Blood Urea Nitrogen 44 mg/dL (9-16); Calcium 8.4 mg/dL (8.4-10.2); Carbon Dioxide 23 mmol/L (22-29); Chloride 104 mmol/L (96-108); Estimated Glomerular Filt Rate 39; Glucose Random 91 mg/dL (60-115); Potassium 5.2 mmol/L (3.3-5.1); Sodium 135 mmol/L (135-145)
== END 2020-09-06 01:06 | disposition home or self-care (01) ==
LOC: HO.MMNH1L 01:05
PROVIDERS: Visit Provider Family Medicine
DX: R53.1 Weakness (principal); R53.83 Other fatigue
CPT/HCPCS: 36415; 80048; 85027

== ENCOUNTER 2020-09-14 00:26 | Outpatient (REF) | payer MEDICARE, SELFPAY | END 2020-09-14 00:27 | disposition home or self-care (01) | LOC: HO.MMNH1L 00:26 | PROVIDERS: Visit Provider Family Medicine | DX: Z13.89 Encounter for screening for other disorder (principal) ==

== ENCOUNTER 2021-03-13 12:35 | Emergency (ER) | payer MEDICARE, SELFPAY ==
--- NOTE | ~2021-03-13 | CT_ITS ---
EXAMINATION: CT CHEST, ABDOMEN AND PELVIS WITH CONTRAST. CLINICAL INFORMATION: Fall. COMPARISON: No pertinent prior studies are available for comparison. TECHNIQUE: Multidetector volumetric imaging was performed from the thoracic inlet through the pubic symphysis following administration of 85 mL Omnipaque 300 intravenous contrast. Sagittal and coronal reformatted images were obtained on the technologist's workstation. This CT examination was performed using dose optimization techniques as appropriate, variously including the following: *Automated exposure control *Adjustment of mA and/or kV according to patient size (this includes techniques or standardized protocols for targeted exams where dose is matched to indication/reason for exam; i.e. extremities or head) *Use of iterative reconstruction technique DLP: 559 mGy-cm FINDINGS: CHEST: Lung: There is peripheral reticulation without focal consolidations. There are scattered subcentimeter pulmonary nodules. For example, a 2 mm right upper lobe pulmonary nodule (16:74), a 3 mm right middle lobe pulmonary nodule (16:295) and a 3 mm left upper lobe pulmonary nodule (16:122). The central airways are patent. Mediastinum: Mild cardiomegaly. No pericardial effusion. Coronary calcifications and atherosclerotic disease of the thoracic aorta which is of normal diameter. No mediastinal or hilar lymphadenopathy. Normal appearance of the thyroid gland. Pericardium/Pleura: No significant effusion. No pleural mass or thickening. Chest Wall/Axilla: Bilateral gynecomastia. ABDOMEN/PELVIS: Peritoneal Space:No significant free air or free fluid identified. Liver, Gallbladder, Biliary Tree: The liver is normal in size, shape, and attenuation. No focal hepatic lesion or biliary ductal dilatation is present. The gallbladder is unremarkable with no evidence of radiopaque gallstones, gallbladder wall thickening, or obvious pericholecystic inflammatory changes. Pancreas: Atrophic. The main pancreatic duct is nondilated. No peripancreatic inflammatory changes. Spleen: Unremarkable. Adrenal Glands: Unremarkable. Kidneys and Ureters: The kidneys are normal in size, shape, and attenuation. There is a 1.7 cm cyst in the upper pole of the left kidney with some thin internal septations and measuring simple fluid attenuation and not requiring further follow-up. A few other tiny hypodensities which are too small to characterize are identified bilaterally which statistically are also likely to represent simple cysts and do not require further workup. No hydronephrosis, hydroureter, or calculi seen. No perinephric stranding. Bladder: Unremarkable. Gastrointestinal Tract: The stomach is nondistended. There are several loops of small bowel that are fluid-filled raising the possibility of gastroenteritis. There is questionable wall thickening of the descending duodenum for example more apparent on image 31 of series 22. There is no bowel obstruction. Diverticulosis. No pericolic inflammatory changes. Moderate stool burden. Normal appendix. Abdominal Wall: Small fat-containing right inguinal hernia. Lymphovascular Structures: No lymphadenopathy by size criteria. The infrarenal abdominal aorta is dilated measuring up to 3.7 cm in maximum axial dimensions. There is extensive atherosclerotic disease and eccentric noncalcified thrombosis. Pelvic Viscera: The prostate gland appears unremarkable. Osseus Structures: There are posterior left-sided fourth and fifth rib fractures. Additional fracture of the posterolateral left ninth rib. There are multiple compression deformities in the thoracolumbar spine, more prominent at T11, L1 and L4. There is diffuse decreased bony mineralization with multilevel thoracolumbar spondylosis. CT/CT abdomen pelvis w con IMPRESSION: 1. Displaced left-sided fourth, fifth and ninth rib fractures with no significant associated healing or callus formation. Correlate for tenderness at this site. 2. Multiple compression deformities, more pronounced at T11, L1 and L4. These are of uncertain age. Correlate for pain and tenderness at these regions. 3. Peripheral interstitial reticulation in the lungs which is indeterminate and could be related with chronic interstitial disease. A superimposed acute inflammatory or infectious process of the small airways cannot be excluded. Subcentimeter pulmonary nodules of uncertain etiology. Recommend follow-up following Fleischner's recommendations. 4. Questionable wall thickening of the duodenum which could be seen with duodenitis or gastroenteritis. There is also a few fluid-filled loops of small bowel which could be seen in the setting of gastroenteritis. Correlate clinically. 5. Diverticulosis. 6. The infrarenal abdominal aorta measures up to 3.7 cm. If patient is asymptomatic, recommend a two-year follow-up interval. 2017 Fleischner Society Recommendations for Lung Nodule(s): Follow-Up based on size (average of long- and short-axis diameters). Use most suspicious nodule for followup. Multiple Solid lung nodules < 6 mm: Follow up management based on most suspicious nodule. In a low-risk patient, no routine follow-up imaging is recommended. In a high-risk patient, a non-contrast Chest CT at 12 months is optional. If performed and the nodule is stable at 12 months, no further follow-up is recommended. These guidelines do not apply to patients younger than 35 years, immunocompromised patients, and patients with cancer. F/u in patients with significant comorbidities as clinically warranted. For lung cancer screening, adhere to Lung-RADS guidelines. Reference: Radiology. 2017 Castillo; 284(1):228-243
--- NOTE | ~2021-03-13 | CT_ITS ---
EXAMINATION: CT HEAD WITHOUT CONTRAST CLINICAL INFORMATION: Trauma. COMPARISON: None. TECHNIQUE: Contiguous axial imaging was performed from the skull base to vertex without intravenous administration of contrast. Coronal and sagittal reformatted images are performed at the CT scanner. [This CT examination was performed using dose optimization techniques as appropriate, variously including the following: *Automated exposure control *Adjustment of mA and/or kV according to patient size (this includes techniques or standardized protocols for targeted exams where dose is matched to indication/reason for exam; i.e. extremities or head) *Use of iterative reconstruction technique] DLP: 805 mGy-cm. FINDINGS: There is no evidence of acute intracranial hemorrhage or territorial infarction. No abnormal mass-effect or midline shift is seen. Mueller to white matter differentiation is well preserved. No extra-axial fluid collections are identified. There is generalized global volume loss. There is moderate prominence of the ventricles and the sulci . There is mild hypodensity of the periventricular white matter due to chronic small vessel ischemic disease. There are vascular calcifications of the internal carotid arteries bilaterally. There is no osseous abnormality. The mastoid air cells and visualized portions of the paranasal sinuses are well-aerated. CT/CT head/brain wo con IMPRESSION: No acute intracranial pathology.
--- NOTE | ~2021-03-13 | XR_ITS ---
EXAMINATION: LEFT SHOULDER. CHEST AND LEFT RIBS. CLINICAL INFORMATION: Fall, injury. COMPARISON: None TECHNIQUE: 3 views left shoulder. 4 views left RIBS and chest. FINDINGS: Chest and left wrist: The lungs are well-expanded and clear of acute process. Heart size and pulmonary vascularity is normal. No gross bony abnormality seen. Multiple views of left ribs reveal mildly displaced left lateral 10th rib fracture. There is mild deformity of left lateral ninth, eighth and seventh ribs suggestive of fracture. There is no pneumothorax. Left shoulder: There is mild reduction in the glenohumeral joint space. There is lateral clavicle of minimally displaced fracture. No other acute fracture or dislocation seen. The soft tissues are normal XR/XR ribs LT min 3V w CXR1V IMPRESSION: Fractures involving left lateral seventh through 10th ribs as described above without any pneumothorax. The lungs are clear. The left lateral clavicular fracture. Mild degenerative changes glenohumeral joint with no fracture or dislocation of the shoulder.
--- NOTE | ~2021-03-13 | XR_ITS ---
EXAMINATION: LEFT SHOULDER. CHEST AND LEFT RIBS. CLINICAL INFORMATION: Fall, injury. COMPARISON: None TECHNIQUE: 3 views left shoulder. 4 views left RIBS and chest. FINDINGS: Chest and left wrist: The lungs are well-expanded and clear of acute process. Heart size and pulmonary vascularity is normal. No gross bony abnormality seen. Multiple views of left ribs reveal mildly displaced left lateral 10th rib fracture. There is mild deformity of left lateral ninth, eighth and seventh ribs suggestive of fracture. There is no pneumothorax. Left shoulder: There is mild reduction in the glenohumeral joint space. There is lateral clavicle of minimally displaced fracture. No other acute fracture or dislocation seen. The soft tissues are normal XR/XR shoulder LT min 2V IMPRESSION: Fractures involving left lateral seventh through 10th ribs as described above without any pneumothorax. The lungs are clear. The left lateral clavicular fracture. Mild degenerative changes glenohumeral joint with no fracture or dislocation of the shoulder.
[2021-03-13 12:42] VITALS: BP 147/87; PULSE 78; RESP 18; TEMP 36.9; O2SAT 97; BMI 23.6
--- NOTE | 2021-03-13 14:26 | ED.FALL ---
HPI - Fall General Chief Complaint: Fall <JORDY Lewis Last Filed: 03/13/21 18:23> Stated Complaint: fall - shoulder/rib pain <JORDY Lewis Last Filed: 03/13/21 18:23> Time Seen by Provider: 03/13/21 13:40 <Kassandra Carrera NP - Last Filed: 03/13/21 18:23> Source: patient <JORDY Lewis Last Filed: 03/13/21 18:23> Mode of arrival: ambulatory <JORDY Lewis Last Filed: 03/13/21 18:23> Limitations: no limitations <JORDY Lewis Last Filed: 03/13/21 18:23> History of Present Illness HPI Narrative: 80-year-old male here with complaints of left shoulder and left chest wall pain after a mechanical fall 2 days ago. Patient tells me he was helping a friend move and he tripped on a stump landing on the ground on his left side. He denies any head strike or loss of consciousness. He is not on any anticoagulation. No cough, shortness of breath, neck pain, back pain, abdominal pain, vomiting or diarrhea. <JORDY Lewis Last Filed: 03/13/21 18:23> Related Data Home Medications: Home Medications Medication Instructions Recorded Confirmed lisinopril 10 mg tablet 1 tab PO DAILY 08/25/20 08/25/20 tramadol 50 mg tablet 50 mg PO Q8H PRN 08/25/20 08/25/20 Previous Rx's Medication Instructions Recorded tramadol 50 mg tablet 50 mg PO Q8H PRN #10 tab 03/13/21 <JORDY Lewis Last Filed: 03/13/21 18:23> Allergies/Adverse Reactions: Allergies Allergy/AdvReac Type Severity Reaction Status Date / Time No Known Allergies Allergy Verified 08/24/20 22:03 <JORDY Lewis Last Filed: 03/13/21 18:23> Review of Systems Review of Systems: Yes all other systems are reviewed and are negative <JORDY Lewis Last Filed: 03/13/21 18:23> Constitutional: Constitutional: Reports no additional constitutional complaints, Denies body ache(s), Denies chills, Denies fever(s), Denies headache(s) and Denies weakness <Kassandra Carrera NP - Last Filed: 03/13/21 18:23> Eyes: Eyes: Reports no additional eye complaints and Denies change in vision <Kassandra Carrera NP - Last Filed: 03/13/21 18:23> ENT: Reports system reviewed and no additional complaints, except as documented, Denies dizziness, Denies headache(s), Denies nasal congestion, Denies nasal discharge and Denies neck pain <Kassandra Carrera NP - Last Filed: 03/13/21 18:23> Cardiovascular: Cardiovascular: Reports no additional cardiovascular complaints, Reports chest pain, Denies leg edema and Denies dyspnea <Kassandra Carrera NP - Last Filed: 03/13/21 18:23> Respiratory: Respiratory: Reports no additional respiratory complaints, Denies cough and Denies dyspnea <Kassandra Carrera SEWING MACHINE OPERATOR SEMIAUTOMATIC - Last Filed: 03/13/21 18:23> Gastrointestinal: Gastrointestinal: Reports no additional gastrointestinal complaints, Denies abdominal pain, Denies diarrhea, Denies nausea and Denies vomiting <Kassandra Carrera NP - Last Filed: 03/13/21 18:23> Genitourinary: Genitourinary: Denies urinary incontinence <Kassandra Carrera NP - Last Filed: 03/13/21 18:23> Musculoskeletal: Musculoskeletal: Reports no additional musculoskeletal complaints, Denies back pain, Reports arthralgias, Denies joint swelling, Reports limited range of motion, Denies neck pain, Denies numbness and Denies tingling <Kassandra Carrera NP - Last Filed: 03/13/21 18:23> Integumentary/Breasts: Skin/Breast: Reports system reviewed and no additional complaints, except as docu and Denies rash <Kassandra Carrera NP - Last Filed: 03/13/21 18:23> Neurologic: Reports system reviewed and no additional complaints, except as documented, Denies Abnormal speech present, Denies dizziness, Denies headache(s), Denies numbness, Denies tingling and Denies weakness <Kassandra Carrera NP - Last Filed: 03/13/21 18:23> [facility] Past Medical History Attestation statement: The following information was validated with the patient. <Kassandra Carrera NP - Last Filed: 03/13/21 18:23> Source: old records reviewed and nursing notes reviewed <Kassandra Carrera NP - Last Filed: 03/13/21 18:23> Medical History: Medical History Cellulitis <Kassandra Carrera NP - Last Filed: 03/13/21 18:23> Social History Social History: Social History Alcohol intake: former Advance Directives: No Advance Directives Information Provided: No <Kassandra Carrera NP - Last Filed: 03/13/21 18:23> Physical Exam Vital Signs: Vital Signs: Last Vital Signs Temp 98.4 F 03/13/21 12:42 Pulse 78 03/13/21 12:42 Resp 18 03/13/21 12:42 BP 147/87 H 03/13/21 12:42 Pulse Ox 97 03/13/21 12:42 Body Mass Index 23.6 <Kassandra Carrera NP - Last Filed: 03/13/21 18:23> Vital Signs: Last Vital Signs Temp 98.4 F 03/13/21 12:42 Pulse 78 03/13/21 12:42 Resp 18 03/13/21 12:42 BP 147/87 H 03/13/21 12:42 Pulse Ox 97 03/13/21 12:42 Body Mass Index 23.6 <Chandrakant Stokes MD - Last Filed: 03/13/21 18:47> Const: General: cooperative, healthy appearing, comfortable and no acute distress <Kassandra Carrera NP - Last Filed: 03/13/21 18:23> Orientation/consciousness: patient oriented x3 <Kassandra Carrera NP - Last Filed: 03/13/21 18:23> Limitations: no limitations <Kassandra Carrera NP - Last Filed: 03/13/21 18:23> HENMT: Head: Yes normal to inspection <Kassandra Carrera NP - Last Filed: 03/13/21 18:23> Ears: hearing grossly normal bilaterally <Kassandra Carrera NP - Last Filed: 03/13/21 18:23> General nose exam: Normal external nose present <Kassandra Carrera NP - Last Filed: 03/13/21 18:23> Face and sinus: Yes normal facial exam <Kassandra Carrera SEWING MACHINE OPERATOR SEMIAUTOMATIC - Last Filed: 03/13/21 18:23> Mouth: Normal oral and palatal mucosa present <Kassandra Carrera NP - Last Filed: 03/13/21 18:23> Throat: Yes posterior oropharynx normal <Kassandra Carrera SEWING MACHINE OPERATOR SEMIAUTOMATIC - Last Filed: 03/13/21 18:23> Eyes: General: appearance normal, both eyes and all related structures <Kassandra Carrera SEWING MACHINE OPERATOR SEMIAUTOMATIC - Last Filed: 03/13/21 18:23> Pupils: Equal, round and reactive pupils present <Kassandra Carrera NP - Last Filed: 03/13/21 18:23> Neck: Neck: Yes normal visual inspection <Kassandra Carrera NP - Last Filed: 03/13/21 18:23> Chest: Chest palpation & inspection: normal inspection of the chest <Kassandra Carrera NP - Last Filed: 03/13/21 18:23> Resp: Effort & Inspection: normal respiratory effort <Kassandra Carrera NP - Last Filed: 03/13/21 18:23> Auscultation: clear to auscultation bilaterally <Kassandra Carrera NP - Last Filed: 03/13/21 18:23> Cardio: Rate: regular rate <Kassandra Carrera NP - Last Filed: 03/13/21 18:23> Rhythm: regular rhythm <Kassandra Carrera NP - Last Filed: 03/13/21 18:23> Peripheral pulses: Peripheral pulses 2+ throughout <Kassandra Carrera NP - Last Filed: 03/13/21 18:23> GI: Inspection: Yes normal to inspection <Kassandra Carrera NP - Last Filed: 03/13/21 18:23> Palpation (GI): Soft to palpation and nontender <Kassandra Carrera SEWING MACHINE OPERATOR SEMIAUTOMATIC - Last Filed: 03/13/21 18:23> Auscultation: normal bowel sounds <Kassandra Carrera NP - Last Filed: 03/13/21 18:23> Back/Spine/Pelvis: Thoracic/Lumbar Spine: thoracic and lumbar spine normal to inspection <Kassandra Carrera SEWING MACHINE OPERATOR SEMIAUTOMATIC - Last Filed: 03/13/21 18:23> Skin: General skin exam: no rashes or lesions noted <Kassandra Carrera NP - Last Filed: 03/13/21 18:23> Neuro: General: patient oriented x3, moves all extremities, no focal motor deficits and normal sensation to monofilament <Kassandra Carrera NP - Last Filed: 03/13/21 18:23> Cranial nerves: Yes Equal, round and reactive pupils present <Kassandra Carrera NP - Last Filed: 03/13/21 18:23> Cognition (Neuro): normal cognition <Kassandra Carrera NP - Last Filed: 03/13/21 18:23> Speech: No Abnormal speech present <Kassandra Carrera NP - Last Filed: 03/13/21 18:23> Gait exam (Neuro): Normal gait present <Kassandra Carrera NP - Last Filed: 03/13/21 18:23> Motor exam (neuro): 5/5 motor strength present throughout <Kassandra Carrera NP - Last Filed: 03/13/21 18:23> Sensory Exam: Normal double simultaneous stimulation for sensation <Kassandra Carrera NP - Last Filed: 03/13/21 18:23> Extrem: Other: Tenderness to the proximal left humerus with no obvious deformity or ecchymosis. Patient has limited abduction due to pain. There is also some ecchymosis over the left anterior shoulder tenderness over the left lateral chest wall with no crepitus or deformity or ecchymosis. <Kassandra Carrera NP - Last Filed: 03/13/21 18:23> General: Yes normal to inspection <Kassandra Carrera NP - Last Filed: 03/13/21 18:23> Course Course Course Narrative: 80-year-old male here after mechanical fall with complaints of left shoulder and left rib pain. 1454- X-ray of the left shoulder shows a distal left clavicular fracture. The x-ray of the chest shows left 7 through 10 rib fractures. Patient will need CT abdomen and pelvis, CT chest, CT head. Will check labs. Patient adamantly will refuse admission and transfer to tertiary care center but is agreeing to additional images. 1730- Labs show anemia at baseline. Chronic kidney disease at baseline. 1800- CT shows 3 left-sided rib fractures. Patient also has 3 vertebral compression fractures. He also has a left clavicle fracture. I discussed with the patient that due to his multiple rib fractures I would consider discussing with the trauma team at [facility] with possible transfer. If they declined transfer I would offer admission to [facility] for pain control and or short-term rehab placement. Patient declined all of these alternatives. He would like to go home as he feels like his pain is well controlled and he does not need any additional services. He is alert and oriented x3. I also informed the patient of the incidental findings of several pulmonary nodules and his abdominal aorta dilation. Patient can follow up with his primary care doctor in regards to these. Reviewed worrisome signs and symptoms and when to return to the emergency department. Comfortable discharge home. <Kassandra Carrera NP - Last Filed: 03/13/21 18:23> MDM - Fall Medical Records Attestation: I reviewed the patient's medical records. <Kassandra Carrera NP - Last Filed: 03/13/21 18:23> Lab Data Attestation: I reviewed the patient's lab results. <Kassandra Carrera NP - Last Filed: 03/13/21 18:23> Result diagrams: : 03/13/21 14:55 03/13/21 14:56 <Kassandra Carrera NP - Last Filed: 03/13/21 18:23> Labs: Lab Results 03/13/21 03/13/21 Range/Units 14:55 14:56 WBC 9.3 (4.8-10.8) X10*3/uL RBC 2.93 L (4.60-5.80) X10*6/uL Hgb 9.5 L (14.0-18.0) g/dl Hct 29.4 L (42.0-52.0) % MCV 100.3 H (80.0-98.0) fL MCH 32.4 (27.0-33.0) pg MCHC 32.3 (31.0-36.0) g/dl RDW 13.6 (11.0-16.0) % Plt Count 221 (160-400) X10*3/uL MPV 9.8 (9.4-12.4) fL Immature Gran % (Auto) 0.5 H (0.0-0.4) % Neut % (Auto) 67.5 (45-73) % Lymph % (Auto) 22.2 (20-40) % [place] % (Auto) 7.6 (2-11) % Eos % (Auto) 1.8 (0-4) % Baso % (Auto) 0.4 (0-2) % Lymph # (Auto) 2.1 (1.2-4.9) X10*3/uL [place] # (Auto) 0.7 (0.1-1.2) X10*3/uL Eos # (Auto) 0.2 (0.0-0.4) X10*3/uL Baso # (Auto) 0.0 (0.0-0.2) X10*3/uL Abs Immat Gran (auto) 0.05 H (0.00-0.03) X10*3/uL Absolute Neuts (auto) 6.3 (2.0-8.3) x10*3/uL Absolute Nucleated RBC 0.000 (0.0-0.012) X10*3/uL Nucleated RBC % (auto) 0.0 (0.0-0.2) /100WBC Sodium 137 (135-145) mmol/L Potassium 4.6 (3.3-5.1) mmol/L Chloride 102 (96-108) mmol/L Carbon Dioxide 26 (22-29) mmol/L Anion Gap 14 (12-20) BUN 30 H (9-16) mg/dL Creatinine 1.64 H (0.5-1.4) mg/dL Estim Creat Clear Calc 35.8 Estimated GFR 40 Random Glucose 140 H D (60-115) mg/dL Calcium 9.1 D (8.4-10.2) mg/dL Total Bilirubin 0.5 (0.0-1.0) mg/dL Direct Bilirubin 0.2 (0.0-0.5) mg/dL AST 29 (5-37) U/L ALT 21 (0-40) U/L Alkaline Phosphatase 96 D (39-117) U/L Total Protein 7.6 (6.5-8.0) g/dL Albumin 4.0 D (3.5-5.0) g/dL <Kassandra Carrera NP - Last Filed: 03/13/21 18:23> Lab Results 03/13/21 03/13/21 Range/Units 14:55 14:56 WBC 9.3 (4.8-10.8) X10*3/uL RBC 2.93 L (4.60-5.80) X10*6/uL Hgb 9.5 L (14.0-18.0) g/dl Hct 29.4 L (42.0-52.0) % MCV 100.3 H (80.0-98.0) fL MCH 32.4 (27.0-33.0) pg MCHC 32.3 (31.0-36.0) g/dl RDW 13.6 (11.0-16.0) % Plt Count 221 (160-400) X10*3/uL MPV 9.8 (9.4-12.4) fL Immature Gran % (Auto) 0.5 H (0.0-0.4) % Neut % (Auto) 67.5 (45-73) % Lymph % (Auto) 22.2 (20-40) % [place] % (Auto) 7.6 (2-11) % Eos % (Auto) 1.8 (0-4) % Baso % (Auto) 0.4 (0-2) % Lymph # (Auto) 2.1 (1.2-4.9) X10*3/uL [place] # (Auto) 0.7 (0.1-1.2) X10*3/uL Eos # (Auto) 0.2 (0.0-0.4) X10*3/uL Baso # (Auto) 0.0 (0.0-0.2) X10*3/uL Abs Immat Gran (auto) 0.05 H (0.00-0.03) X10*3/uL Absolute Neuts (auto) 6.3 (2.0-8.3) x10*3/uL Absolute Nucleated RBC 0.000 (0.0-0.012) X10*3/uL Nucleated RBC % (auto) 0.0 (0.0-0.2) /100WBC Sodium 137 (135-145) mmol/L Potassium 4.6 (3.3-5.1) mmol/L Chloride 102 (96-108) mmol/L Carbon Dioxide 26 (22-29) mmol/L Anion Gap 14 (12-20) BUN 30 H (9-16) mg/dL Creatinine 1.64 H (0.5-1.4) mg/dL Estim Creat Clear Calc 35.8 Estimated GFR 40 Random Glucose 140 H D (60-115) mg/dL Calcium 9.1 D (8.4-10.2) mg/dL Total Bilirubin 0.5 (0.0-1.0) mg/dL Direct Bilirubin 0.2 (0.0-0.5) mg/dL AST 29 (5-37) U/L ALT 21 (0-40) U/L Alkaline Phosphatase 96 D (39-117) U/L Total Protein 7.6 (6.5-8.0) g/dL Albumin 4.0 D (3.5-5.0) g/dL <Chandrakant Stokes MD - Last Filed: 03/13/21 18:47> Imaging Data left shoulder fx: Attestation: I personally reviewed and interpreted this imaging study as follows: <Kassandra Carrera NP - Last Filed: 03/13/21 18:23> Radiologist's impression: Left shoulder: There is mild reduction in the glenohumeral joint space. There is lateral clavicle of minimally displaced fracture. No other acute fracture or dislocation seen. The soft tissues are normal? <Kassandra Carrera NP - Last Filed: 03/13/21 18:23> Chest x-ray: Attestation: I personally reviewed and interpreted this imaging study as follows: <Kassandra Carrera NP - Last Filed: 03/13/21 18:23> Radiologist's impression: FINDINGS: Chest and left wrist: The lungs are well-expanded and clear of acute process. Heart size and pulmonary vascularity is normal. No gross bony abnormality seen. Multiple views of left ribs reveal mildly displaced left lateral 10th rib fracture. There is mild deformity of left lateral ninth, eighth and seventh ribs suggestive of fracture. There is no pneumothorax. <Kassandra Carrera NP - Last Filed: 03/13/21 18:23> CT scan - head: Attestation: I personally reviewed and interpreted this imaging study as follows: <Kassandra Carrera NP - Last Filed: 03/13/21 18:23> Radiologist's impression: FINDINGS: There is no evidence of acute intracranial hemorrhage or territorial infarction. No abnormal mass-effect or midline shift is seen. Mueller to white matter differentiation is well preserved. No extra-axial fluid collections are identified. There is generalized global volume loss. There is moderate prominence of the ventricles and the sulci . There is mild hypodensity of the periventricular white matter due to chronic small vessel ischemic disease. There are vascular calcifications of the internal carotid arteries bilaterally. There is no osseous abnormality. The mastoid air cells and visualized portions of the paranasal sinuses are well-aerated. ? CT/CT head/brain wo con IMPRESSION: No acute intracranial pathology. <Kassandra Carrera NP - Last Filed: 03/13/21 18:23> CT scan - chest: Attestation: I personally reviewed and interpreted this imaging study as follows: <Kassandra Carrera NP - Last Filed: 03/13/21 18:23> Radiologist's impression: CHEST: Lung: There is peripheral reticulation without focal consolidations. There are scattered subcentimeter pulmonary nodules. For example, a 2 mm right upper lobe pulmonary nodule (16:74), a 3 mm right middle lobe pulmonary nodule (16:295) and a 3 mm left upper lobe pulmonary nodule (16:122). The central airways are patent. Mediastinum: Mild cardiomegaly. No pericardial effusion. Coronary calcifications and atherosclerotic disease of the thoracic aorta which is of normal diameter. No mediastinal or hilar lymphadenopathy. Normal appearance of the thyroid gland. Pericardium/Pleura: No significant effusion. No pleural mass or thickening. Chest Wall/Axilla: Bilateral gynecomastia. <Kassandra Carrera NP - Last Filed: 03/13/21 18:23> Discharge Plan Discharge Clinical Impression: Compression fracture of T11 vertebra, Compression fracture of L1 lumbar vertebra, Compression fracture of L4 vertebra, Incidental pulmonary nodule, Enlargement of abdominal aorta Fracture of clavicle Qualifiers: Encounter type: initial encounter Clavicle location: lateral end Fracture type: closed Fracture alignment: nondisplaced Laterality: left Qualified Code(s): S42.035A - Nondisplaced fracture of lateral end of left clavicle, initial encounter for closed fracture Closed rib fracture Qualifiers: Encounter type: initial encounter Rib fracture type: multiple ribs Laterality: left Qualified Code(s): S22.42XA - Multiple fractures of ribs, left side, initial encounter for closed fracture <Kassandra Carrera NP - Last Filed: 03/13/21 18:23> Patient Disposition: Home, Self-Care <Kassandra Carrera NP - Last Filed: 03/13/21 18:23> Instructions: Clavicle Fracture (ED), Rib Fracture (ED), Vertebral Compression Fracture (ED) <Kassandra Carrera NP - Last Filed: 03/13/21 18:23> Additional Instructions: Your lab work shows that you have chronic kidney disease as well as chronic anemia. You need to follow-up with primary care doctor in regards to these. You have 3 rib fractures on the left side as well as a clavicle fracture on the left side. The rib fractures will heal with time. We will prescribe medication for pain. Clavicle fracture will heal with time as well. You were given a sling to use for comfort. Follow-up with Orthopedics. Your CT scan also shows several compression fractures in your back. these have likely been here for some time. Your CT scan also shows incidental finding of several lung nodules. These need to be monitor closely by your primary care doctor. It also shows that your abdominal aorta is mildly elevated. This is to be followed by your primary care doctor. <Kassandra Carrera NP - Last Filed: 03/13/21 18:23> Prescriptions: New tramadol 50 mg tablet 50 mg PO Q8H PRN (Reason: pain) Qty: 10 RF: 0 No Action tramadol 50 mg Tablet 50 mg PO Q8H PRN (Reason: Pain, Severe) RF: 0 lisinopril 10 mg tablet 1 tab PO DAILY RF: 0 <Kassandra Carrera NP - Last Filed: 03/13/21 18:23> Referrals: Raphael Brown MD [Physician] - 2 days Physician,Unknown J [Primary Care Provider] - 2 days <Kassandra Carrera NP - Last Filed: 03/13/21 18:23> Discharge Date/Time: 03/13/21 18:23 <Kassandra Carrera NP - Last Filed: 03/13/21 18:23>
[2021-03-13 15:10] LABS: Basophils Percent Auto 0.4 % (0-2); Eosinophils Absolute Auto 0.2 X10*3/uL (0.0-0.4); Eosinophils Percent Auto 1.8 % (0-4); Hematocrit 29.4 % (42.0-52.0); Hemoglobin 9.5 g/dl (14.0-18.0); Imm Gran Abs Auto 0.05 X10*3/uL (0.00-0.03); Imm Gran Pct Auto 0.5 % (0.0-0.4); Lymphocytes Absolute Auto 2.1 X10*3/uL (1.2-4.9); Lymphocytes Percent Auto 22.2 % (20-40); MANUAL DIFF FLAG NO; Mean Corpuscular HGB Conc 32.3 g/dl (31.0-36.0); Mean Corpuscular Hemoglobin 32.4 pg (27.0-33.0); Mean Corpuscular Volume 100.3 fL (80.0-98.0); Mean Platelet Volume 9.8 fL (9.4-12.4); Monocytes Absolute Auto 0.7 X10*3/uL (0.1-1.2); Monocytes Percent Auto 7.6 % (2-11); Neutrophils Absolute Auto 6.3 x10*3/uL (2.0-8.3); Neutrophils Percent Auto 67.5 % (45-73); Platelet Count 221 X10*3/uL (160-400); Red Blood Count 2.93 X10*6/uL (4.60-5.80); Red Cell Distribution Width 13.6 % (11.0-16.0); White Blood Count 9.3 X10*3/uL (4.8-10.8)
[2021-03-13 15:35] LABS: Alanine Aminotransferase 21 U/L (0-40); Alkaline Phosphatase 96 U/L (39-117); Anion Gap 14 (12-20); Aspartate Amino Transferase 29 U/L (5-37); Bilirubin Direct 0.2 mg/dL (0.0-0.5); Bilirubin Total 0.5 mg/dL (0.0-1.0); Blood Urea Nitrogen 30 mg/dL (9-16); Calcium 9.1 mg/dL (8.4-10.2); Carbon Dioxide 26 mmol/L (22-29); Chloride 102 mmol/L (96-108); Creatinine Clr Calc Pharmacy 35.8; Estimated Glomerular Filt Rate 40; Glucose Random 140 mg/dL (60-115); Potassium 4.6 mmol/L (3.3-5.1); Sodium 137 mmol/L (135-145); Total Protein 7.6 g/dL (6.5-8.0)
[2021-03-13] MEDS: 0.9 % Sodium Chloride 1,000 ML 999 ML IV (16:06)
[2021-03-13] MEDS: iohexoL 350 MG/ML 100 ML INFUS..BTL IV (16:46)
== END 2021-03-13 18:23 | disposition home or self-care (01) ==
PROVIDERS: Nurse Practitioner Family; Emergency Provider Emergency Medicine
DX: S22.080A Wedge compression fracture of T11-T12 vertebra, initial encounter for closed fracture (principal); S32.010A Wedge compression fracture of first lumbar vertebra, initial encounter for closed fracture; S32.040A Wedge compression fracture of fourth lumbar vertebra, initial encounter for closed fracture; S42.035A Nondisplaced fracture of lateral end of left clavicle, initial encounter for closed fracture; S22.42XA Multiple fractures of ribs, left side, initial encounter for closed fracture; W18.31XA Fall on same level due to stepping on an object, initial encounter; R91.8 Other nonspecific abnormal finding of lung field; I71.4 Abdominal aortic aneurysm, without rupture; N18.9 Chronic kidney disease, unspecified; D63.1 Anemia in chronic kidney disease; Y93.E6 Activity, residential relocation; Y92.017 Garden or yard in single-family (private) house as the place of occurrence of the external cause; Y99.9 Unspecified external cause status
CPT/HCPCS: 36415; 70450; 71101; 71260; 73030; 74177; 80048; 80076; 85025; 96360; 99283; 99284; Q9967

== ENCOUNTER → 2021-03-17 13:19 | Outpatient (BNVA) | payer MEDICARE, SELFPAY | PROVIDERS: Visit Provider Physician Assistant | DX: S42.002A Fracture of unspecified part of left clavicle, initial encounter for closed fracture (principal) | CPT/HCPCS: 99202 ==

== ENCOUNTER 2021-04-07 13:33 | Emergency (ER) | payer MEDICARE, SELFPAY ==
--- NOTE | ~2021-04-07 | XR_ITS ---
EXAMINATION: XR RIBS, LEFT CLINICAL INFORMATION: Fall, left chest pain. Recent trauma with known rib fractures and vertebral compressions. Assess for new finding. COMPARISON: Chest and left rib radiographs 03/13/2021, CT chest with contrast 03/13/2021. TECHNIQUE: Frontal view chest and 3 views left ribs are obtained for a total of 4 views. FINDINGS: The lungs are clear and there is no pneumothorax, pleural reaction, pneumomediastinum, or effusion. Tapering at the cardiac apex is similar to prior exam consistent with combination of areolar tissue and subsegmental atelectasis left lateral base. The hilar and mediastinal contours are stable. There are prior mildly displaced fractures involving the left posterior medial fourth and fifth ribs and left anterior lateral ninth rib. Suspect new hairline fractures involving the anterolateral seventh and eighth ribs which may be correlated with patient's symptoms and clinical exam. No free air beneath the diaphragm. No subcutaneous emphysema. XR/XR ribs LT min 3V w CXR1V IMPRESSION: 1. Suspect new hairline fractures left anterior lateral seventh and eighth ribs. 2. Subacute fractures again noted left posterior medial fourth and fifth ribs and left anterior lateral ninth rib similar to recent imaging. 3. No acute intrathoracic disease. No pneumothorax, pleural reaction, infiltrate, or effusion.
[2021-04-07 14:13] VITALS: BP 171/84; PULSE 94; RESP 18; TEMP 36.6; O2SAT 98; BMI 23.0
--- NOTE | 2021-04-07 16:05 | ED.GENADULT ---
HPI - General Adult General Chief complaint: General Medical Stated complaint: rib/collar pain Time Seen by Provider: 04/07/21 16:04 Source: patient Limitations: no limitations History of Present Illness HPI narrative: Patient presents to the ER complaining of left-sided mid back and rib pain. Patient has a history of rib fractures back in late February. Patient states he tripped again today landing on her arm of a chair on his left side of his ribs. Pain increases with palpation and deep inspiration. Patient recalls all events. Patient states pain is aching nature in 09/23. No nausea vomiting fever chills at this time. Patient also denies any shortness of breath. Related Data Home Medications Medication Instructions Recorded Confirmed lisinopril 10 mg tablet 1 tab PO DAILY 08/25/20 08/25/20 tramadol 50 mg tablet 50 mg PO Q8H PRN 08/25/20 08/25/20 cephalexin 750 mg capsule 750 mg PO BID 03/17/21 Previous Rx's Medication Instructions Recorded tramadol 50 mg tablet 50 mg PO Q8H PRN #10 tab 03/17/21 tramadol 50 mg tablet 50 mg PO BID PRN #14 tab 04/07/21 Allergies Allergy/AdvReac Type Severity Reaction Status Date / Time No Known Allergies Allergy Verified 03/17/21 13:43 Review of Systems Constitutional: Constitutional: Denies chills, Denies fever(s) and Denies headache(s) ENT: Denies headache(s) and Denies sore throat Cardiovascular: Cardiovascular: Denies chest pain and Denies dyspnea Comments: Left lateral rib pain Respiratory: Respiratory: Denies dyspnea Gastrointestinal: Gastrointestinal: Denies nausea and Denies vomiting Musculoskeletal: Musculoskeletal: Reports back pain Comments: Mid back pain Neurologic: Denies headache(s) [facility] Past Medical History Attestation statement: The following information was validated with the patient. Medical History Cellulitis Social History Social History Alcohol intake: former Advance Directives: No Advance Directives Information Provided: Yes Physical Exam Vital Signs: Vital Signs: Last Vital Signs Temp 98 F 04/07/21 14:13 Pulse 94 04/07/21 14:13 Resp 18 04/07/21 14:13 BP 171/84 H 04/07/21 14:13 Pulse Ox 98 04/07/21 14:13 BMI result Body Mass Index 23.0 vital signs have been reviewed as normal and appeared to be correct. Blood pressure normal. Heart rate normal. Respiration rate normal. Temperature normal. Oxygen saturation normal. Appearance: Alert. Oriented X3. No acute distress. Head: Normal external exam. Normocephalic. Atraumatic. No Leiva signs noted. No raccoon eyes noted Eyes: PERRLA. EOMI. Conjunctiva and sclera normal. Eyelids normal. ENT: Pharynx normal. Uvula midline. Moist mucous membranes. Neck: Soft full range of motion, no JVD CVS: Heart regular rate and rhythm no murmurs and rubs Respiratory: Breath sounds are clear to auscultation bilaterally. No accessory muscle use noted. Left lateral ribs positive tenderness no crepitus Abdomen: Soft nontender no rebound or guarding positive bowel sounds Back: Left-sided midback posterior ribs positive tenderness no midline tenderness of the spine. Skin: Skin warm and dry. Normal skin color. No ecchymosis noted Extremities: No lower extremity edema. Extremities exhibit normal range of motion. Extremities nontender. Neuro: Oriented X 3. No motor deficit. No sensory deficit. Reflexes normal. Course Course Course Narrative: Left-sided rib fracture Pneumothorax Left rib contusion Mid back strain Patient diagnosed in the past with rib fractures will recheck x-ray at this time as he injured that side again on the arm of a chair. X-rays pending at this time. Medical Decision Making Imaging Data rib: Radiologist's impression: [place] [id number] XRay Report Signed Patient: Yordan Mendez MR#: [id number] : 1940 Acct:[id number] Age/Sex: 80 / M ADM Date: 04/07/21 Loc: HO.ED Attending Dr: Ordering Physician: Elliott Welsh Date of Service: 04/07/21 Procedure(s): XR ribs LT min 3V w CXR1V Accession Number(s): [id number] cc: Elliott Welsh ~ EXAMINATION: XR RIBS, LEFT CLINICAL INFORMATION: Fall, left chest pain. Recent trauma with known rib fractures and vertebral compressions. Assess for new finding. COMPARISON: Chest and left rib radiographs 03/13/2021, CT chest with contrast 03/13/2021. TECHNIQUE: Frontal view chest and 3 views left ribs are obtained for a total of 4 views. FINDINGS: The lungs are clear and there is no pneumothorax, pleural reaction, pneumomediastinum, or effusion. Tapering at the cardiac apex is similar to prior exam consistent with combination of areolar tissue and subsegmental atelectasis left lateral base. The hilar and mediastinal contours are stable. There are prior mildly displaced fractures involving the left posterior medial fourth and fifth ribs and left anterior lateral ninth rib. Suspect new hairline fractures involving the anterolateral seventh and eighth ribs which may be correlated with patient's symptoms and clinical exam. No free air beneath the diaphragm. No subcutaneous emphysema. XR/XR ribs LT min 3V w CXR1V IMPRESSION: ? 1. Suspect new hairline fractures left anterior lateral seventh and eighth ribs. ? 2. Subacute fractures again noted left posterior medial fourth and fifth ribs and left anterior lateral ninth rib similar to recent imaging. ? 3. No acute intrathoracic disease. No pneumothorax, pleural reaction, infiltrate, or effusion. Dictated By: Yanick Amado MD Signed By: <Electronically signed by Yanick Amado MD in OV> 04/07/21 1703 DD/ 1619 TD/TT:? [employer] Developer: MATOS Discharge Plan Discharge Clinical Impression: Left rib fracture Qualifiers: Encounter type: subsequent encounter Rib fracture type: multiple ribs Fracture type: closed Fracture healing: with routine healing Qualified Code(s): S22.42XD - Multiple fractures of ribs, left side, subsequent encounter for fracture with routine healing Patient Disposition: Home, Self-Care Instructions: Rib Fracture (ED) Additional Instructions: You have old healing rib fractures Appears to have a new 7th hairline rib fracture. Return if symptoms worsen Prescriptions: New tramadol 50 mg tablet 50 mg PO BID PRN (Reason: pain) Qty: 14 RF: 0 No Action tramadol 50 mg Tablet 50 mg PO Q8H PRN (Reason: Pain, Severe) RF: 0 lisinopril 10 mg tablet 1 tab PO DAILY RF: 0 tramadol 50 mg tablet 50 mg PO Q8H PRN (Reason: pain) Qty: 10 RF: 0
== END 2021-04-07 17:40 | disposition home or self-care (01) ==
PROVIDERS: Emergency Provider Emergency Medicine
DX: S22.42XA Multiple fractures of ribs, left side, initial encounter for closed fracture (principal); W01.190A Fall on same level from slipping, tripping and stumbling with subsequent striking against furniture, initial encounter; Y93.9 Activity, unspecified; Y92.9 Unspecified place or not applicable; Y99.9 Unspecified external cause status
CPT/HCPCS: 71101; 99283

== ENCOUNTER 2021-05-08 13:47 | Emergency (ER) | payer OTHER, SELFPAY ==
--- NOTE | ~2021-05-08 | XR_ITS ---
EXAMINATION: XR LUMBOSACRAL SPINE CLINICAL INFORMATION: Pain after lifting heavy object COMPARISON: Previous lumbar spine x-ray October [address] of the abdomen and pelvis February 2021 TECHNIQUE: Three views of the lumbosacral spine. FINDINGS: There are L1 L3 and L4 vertebral body compression fractures. This appears similar to CT scan February 2021. There is a T11 vertebral body compression fracture that appears unchanged as well. There is mild anterior subluxation of L4 with respect L5 that is stable. Bone alignment is otherwise normal. There is degenerative disc disease at L5-S1. There is lower lumbar spine facet arthritis. There is evidence of atherosclerotic disease. The abdominal aorta appears slightly dilated measuring up to 4.3 cm in AP dimension not accounting for magnification. XR/XR lumbar spine 2-3V IMPRESSION: Multiple lower thoracic and lumbar vertebral body compression fractures. These appear stable compared to most recent CT of the abdomen and pelvis February 2021. Degenerative changes of the lower lumbar spine. Dilatation of the abdominal aorta.
[2021-05-08 14:23] VITALS: BP 160/95; PULSE 92; TEMP 36.5; O2SAT 98; BMI 22.9
--- NOTE | 2021-05-08 14:43 | ED_ITS ---
HPI - Back Pain/Injury General Chief Complaint: Back Pain/Injury <Kassandra Carrera NP - Last Filed: 05/08/21 16:13> Stated Complaint: Back pain <Kassandra Carrera NP - Last Filed: 05/08/21 16:13> Time Seen by Provider: 05/08/21 14:35 <Kassandra Carrera NP - Last Filed: 05/08/21 16:13> Source: patient <Kassandra Carrera NP - Last Filed: 05/08/21 16:13> Mode of arrival: ambulatory <Kassandra Carrera NP - Last Filed: 05/08/21 16:13> Limitations: no limitations <Kassandra Carrera NP - Last Filed: 05/08/21 16:13> History of Present Illness HPI Narrative: 80-year-old male here with reports of low back pain after lifting a heavy bag of sand several days ago. There is no radiation of pain. No numbness or tingling. No bowel or bladder incontinence. No fevers or chills. Patient has tramadol 50 mg which he takes as needed at home. The patient tells me he is ru nning low on his tramadol which is what prompted his visit to the emergency department. Tells me he has about 10 tablets left at home. Has not called his primary care doctor. <Kassandra Carrera NP - Last Filed: 05/08/21 16:13> Related Data Home Medications: Home Medications Medication Instructions Recorded Confirmed lisinopril 10 mg tablet 1 tab PO DAILY 08/25/20 08/25/20 tramadol 50 mg tablet 50 mg PO Q8H PRN 08/25/20 08/25/20 cephalexin 750 mg capsule 750 mg PO BID 03/17/21 Previous Rx's Medication Instructions Recorded tramadol 50 mg tablet 50 mg PO Q8H PRN #10 tab 03/17/21 tramadol 50 mg tablet 50 mg PO BID PRN #14 tab 04/07/21 diphenhydramine HCl 25 mg capsule 25 mg PO Q6H PRN #20 cap 05/08/21 (Benadryl) tramadol 50 mg tablet 50 mg PO Q8H PRN #15 tab 05/08/21 <Kassandra Carrera NP - Last Filed: 05/08/21 16:13> Allergies/Adverse Reactions: Allergies Allergy/AdvReac Type Severity Reaction Status Date / Time No Known Allergies Allergy Verified 05/08/21 14:29 <Kassandra Carrera NP - Last Filed: 05/08/21 16:13> Review of Systems Review of Systems: Yes all other systems are reviewed and are negative <Kassandra Carrera NP - Last Filed: 05/08/21 16:13> Constitutional: Constitutional: Reports no additional constitutional complaints, Denies body ache(s), Denies chills, Denies fever(s), Denies headache(s) and Denies weakness <Kassandra Carrera NP - Last Filed: 05/08/21 16:13> Eyes: Eyes: Reports no additional eye complaints and Denies change in vision <Kassandra Carrera NP - Last Filed: 05/08/21 16:13> ENT: Reports system reviewed and no additional complaints, except as docu mented, Denies dizziness, Denies headache(s), Denies nasal congestion, Denies nasal discharge and Denies neck pain <Kassandra Carrera NP - Last Filed: 05/08/21 16:13> Cardiovascular: Cardiovascular: Reports no additional cardiovascular complaints, Denies chest pain, Denies leg edema and Denies dyspnea <Kassandra Carrera NP - Last Filed: 05/08/21 16:13> Respiratory: Respiratory: Reports no additional respiratory complaints, Denies cough and Denies dyspnea <Kassandra Carrera NP - Last Filed: 05/08/21 16:13> Gastrointestinal: Gastrointestinal: Reports no additional gastrointestinal complaints, Denies abdominal pain, Denies diarrhea, Denies nausea and Denies vomiting <Kassandra Carrera NP - Last Filed: 05/08/21 16:13> Genitourinary: Genitourinary: Denies urinary incontinence <Kassandra Carrera NP - Last Filed: 05/08/21 16:13> Musculoskeletal: Musculoskeletal: Reports no additional musculoskeletal complaints, Reports back pain, Denies arthralgias, Denies joint swelling, Denies neck pain, Denies numbness and Denies tingling <Kassandra Carrera NP - Last Filed: 05/08/21 16:13> Integumentary/Breasts: Skin/Breast: Reports system reviewed and no additional complaints, except as docu and Denies rash <Kassandra Carrera NP - Last Filed: 05/08/21 16:13> Neurologic: Reports system reviewed and no additional complaints, except as documented, Denies Abnormal speech present, Denies dizziness, Denies headache(s), Denies numbness, Denies tingling and Denies weakness <Kassandra Carrera NP - Last Filed: 05/08/21 16:13> PMFSH Past Medical History Attestation statement: The following information was validated with the patient. <Kassandra Carrera NP - Last Filed: 05/08/21 16:13> Source: old records reviewed and nursing notes reviewed <Kassandra Carrera NP - Last Filed: 05/08/21 16:13> Medical History: Medical History Cellulitis <Kassandra Carrera NP - Last Filed: 05/08/21 16:13> Social History Social History: Social History Alcohol intake: former Advance Directives: No Advance Directives Information Provided: Yes <Kassandra Carrera NP - Last Filed: 05/08/21 16:13> Physical Exam Vital Signs: Vital Signs: Last Vital Signs Temp 97.7 F 05/08/21 14:23 Pulse 92 05/08/21 14:23 BP 160/95 H 05/08/21 14:23 Pulse Ox 98 05/08/21 14:23 BMI result Body Mass Index 22.9 <Kassandra Carrera NP - Last Filed: 05/08/21 16:13> Vital Signs: Last Vital Signs Temp 97.7 F 05/08/21 14:23 Pulse 92 05/08/21 14:23 BP 160/95 H 05/08/21 14:23 Pulse Ox 98 05/08/21 14:23 BMI result Body Mass Index 22.9 <Andrew Dickinson MD - Last Filed: 05/08/21 16:17> Const: General: cooperative, healthy appearing, comfortable and no acute distress <Kassandra Carrera NP - Last Filed: 05/08/21 16:13> Orientation/consciousness: patient oriented x3 <Kassandra Carrera NP - Last Filed: 05/08/21 16:13> Limitations: no limitations <Kassandra Carrera NP - Last Filed: 05/08/21 16:13> HENMT: Head: Yes normal to inspection <Kassandra Carrera NP - Last Filed: 05/08/21 16:13> Ears: hearing grossly normal bilaterally <Kassandra Carrera NP - Last Filed: 05/08/21 16:13> General nose exam: Normal external nose present <Kassandra Carrera NP - Last Filed: 05/08/21 16:13> Face and sinus: Yes normal facial exam <Kassandra Carrera NP - Last Filed: 05/08/21 16:13> Mouth: Normal oral and palatal mucosa present <Kassandra Carrera NP - Last Filed: 05/08/21 16:13> Throat: Yes posterior oropharynx normal <Kassandra Carrera NP - Last Filed: 05/08/21 16:13> Eyes: General: appearance normal, both eyes and all related structures <Kassandra Carrera NP - Last Filed: 05/08/21 16:13> Pupils: Equal, round and reactive pupils present <Kassandra Carrera NP - Last Filed: 05/08/21 16:13> Neck: Neck: Yes normal visual inspection <Kassandra Carrera NP - Last Filed: 05/08/21 16:13> Chest: Chest palpation & inspection: normal inspection of the chest <Kassandra Carrera NP - Last Filed: 05/08/21 16:13> Resp: Effort & Inspection: normal respiratory effort <Kassandra Carrera NP - Last Filed: 05/08/21 16:13> Auscultation: clear to auscultation bilaterally <Kassandra Carrera NP - Last Filed: 05/08/21 16:13> Cardio: Rate: regular rate <Kassandra Carrera NP - Last Filed: 05/08/21 16:13> Rhythm: regular rhythm <Kassandra Carrera NP - Last Filed: 05/08/21 16:13> Peripheral pulses: Peripheral pulses 2+ throughout <Kassandra Carrera NP - Last Filed: 05/08/21 16:13> GI: Inspection: Yes normal to inspection <Kassandra Carrera NP - Last Filed: 05/08/21 16:13> Palpation (GI): Soft to palpation and nontender <Kassandra Carrera NP - Last Filed: 05/08/21 16:13> Auscultation: normal bowel sounds <Kassandra Carrera NP - Last Filed: 05/08/21 16:13> Back/Spine/Pelvis: Other: Tenderness to lumbar mid spine with no step-offs or deformities <Kassandra Carrera NP - Last Filed: 05/08/21 16:13> Thoracic/Lumbar Spine: thoracic and lumbar spine normal to inspection <Kassandra Carrera NP - Last Filed: 05/08/21 16:13> Skin: General skin exam: no rashes or lesions noted <Kassandra Carrera NP - Last Filed: 05/08/21 16:13> Neuro: General: patient oriented x3, no focal motor deficits and normal sensation to monofilament <Kassandra Carrera NP - Last Filed: 05/08/21 16:13> Cranial nerves: Yes CN's II-XII intact bilaterally, Yes Equal, round and reactive pupils present, Yes Bilaterally intact EOM present, Yes Nystagmus not present, Yes Normal facial strength present and Yes Midline tongue present <Kassandra Carrera NP - Last Filed: 05/08/21 16:13> Cognition (Neuro): normal cognition <Kassandra Carrera NP - Last Filed: 05/08/21 16:13> Speech: No Abnormal speech present <Kassandra Carrera NP - Last Filed: 05/08/21 16:13> Gait exam (Neuro): Normal gait present <Kassandra Carrera NP - Last Filed: 05/08/21 16:13> Motor exam (neuro): 5/5 motor strength present throughout <Kassandra Carrera NP - Last Filed: 05/08/21 16:13> Sensory Exam: Normal double simultaneous stimulation for sensation <Kassandra Carrera NP - Last Filed: 05/08/21 16:13> Deep tendon reflexes (DTR's): Right patellar reflex intensity grade: 2+ and Left patellar reflex intensity grade: 2+ <Kassandra Carrera NP - Last Filed: 05/08/21 16:13> Extrem: General: Yes normal to inspection <Kassandra Carrera NP - Last Filed: 05/08/21 16:13> Course Course Course Narrative: 80-year-old male here with low back pain after lifting injury several days ago No neurological deficits or red flag symptoms Patient ambulatory Will check x-rays 1610-X-rays show Multiple lower thoracic and lumbar vertebral body compression fractures. These appear stable compared to most recent CT of the abdomen and pelvis February 2021. Degenerative changes of the lower lumbar spine. Dilatation of the abdominal aorta. -reviewed findings with patient. Patient tells me he does not have a primary care doctor and is working on establishing one. Will give him a prescription for tramadol as needed. Reviewed worrisome signs and symptoms when to return to the emergency department. Comfortable discharge home. <Kassandra Carrera NP - Last Filed: 05/08/21 16:13> MDM - Back Pain/Injury Medical Records Attestation: I reviewed the patient's medical records. <Kassandra Carrera NP - Last Filed: 05/08/21 16:13> Lab Data Attestation: I reviewed the patient's lab results. <Kassandra Carrera NP - Last Filed: 05/08/21 16:13> Imaging Data lumbar x-ray: Attestation: I personally reviewed and interpreted this imaging study as follows: <Kassandra Carrera NP - Last Filed: 05/08/21 16:13> Radiologist's impression: Multiple lower thoracic and lumbar vertebral body compression fractures. These appear stable compared to most recent CT of the abdomen and pelvis February 2021. Degenerative changes of the lower lumbar spine. Dilatation of the abdominal aorta. <Kassandra Carrera NP - Last Filed: 05/08/21 16:13> Discharge Plan Discharge Clinical Impression: Compression fx, lumbar spine <Kassandra Carrera NP - Last Filed: 05/08/21 16:13> Patient Disposition: Home, Self-Care <Kassandra Carrera NP - Last Filed: 05/08/21 16:13> Instructions: Vertebral Compression Fracture (ED) <Kassandra Carrera NP - Last Filed: 05/08/21 16:13> Additional Instructions: Do not pickle maker your tramadol until you run out of your other tramadol at home Follow-up with primary care No heavy lifting or bending <Kassandra Carrera NP - Last Filed: 05/08/21 16:13> Prescriptions: New diphenhydramine HCl [Benadryl] 25 mg capsule 25 mg PO Q6H PRN (Reason: itching) Qty: 20 RF: 0 tramadol 50 mg tablet 50 mg PO Q8H PRN (Reason: pain) Qty: 15 RF: 0 No Action tramadol 50 mg Tablet 50 mg PO Q8H PRN (Reason: Pain, Severe) RF: 0 lisinopril 10 mg tablet 1 tab PO DAILY RF: 0 tramadol 50 mg tablet 50 mg PO BID PRN (Reason: pain) Qty: 14 RF: 0 tramadol 50 mg tablet 50 mg PO Q8H PRN (Reason: pain) Qty: 10 RF: 0 <Kassandra Carrera NP - Last Filed: 05/08/21 16:13> Interventions: ED Discharge Assessment Last Done: 05/08/21 15:56 <Kassandra Carrera NP - Last Filed: 05/08/21 16:13> Discharge Date/Time: 05/08/21 16:07 <Kassandra Carrera NP - Last Filed: 05/08/21 16:13>
== END 2021-05-08 16:07 | disposition home or self-care (01) ==
PROVIDERS: Emergency Provider Emergency Medicine
DX: S32.009A Unspecified fracture of unspecified lumbar vertebra, initial encounter for closed fracture (principal); X50.0XXA Overexertion from strenuous movement or load, initial encounter; Y93.9 Activity, unspecified; Y92.9 Unspecified place or not applicable; Y99.9 Unspecified external cause status; Z79.899 Other long term (current) drug therapy
CPT/HCPCS: 72100; 99283

== ENCOUNTER 2021-10-28 05:50 | Outpatient (REF) | payer MEDICARE, SELFPAY ==
[2021-10-28 05:52] LABS: MANUAL DIFF FLAG NO
[2021-10-28 06:18] LABS: Basophils Percent Auto 0.4 % (0-2); Eosinophils Absolute Auto 0.4 X10*3/uL (0.0-0.4); Eosinophils Percent Auto 5.4 % (0-4); Hematocrit 25.6 % (42.0-52.0); Hemoglobin 8.2 g/dl (14.0-18.0); Imm Gran Abs Auto 0.04 X10*3/uL (0.00-0.03); Imm Gran Pct Auto 0.5 % (0.0-0.4); Mean Corpuscular Hemoglobin 31.1 pg (27.0-33.0); Mean Platelet Volume 9.6 fL (9.4-12.4); Monocytes Absolute Auto 0.7 X10*3/uL (0.1-1.2); Monocytes Percent Auto 8.5 % (2-11); Neutrophils Absolute Auto 4.8 x10*3/uL (2.0-8.3); Neutrophils Percent Auto 60.2 % (45-73); Platelet Count 274 X10*3/uL (160-400); Red Blood Count 2.64 X10*6/uL (4.60-5.80); Red Cell Distribution Width 15.6 % (11.0-16.0); White Blood Count 7.9 X10*3/uL (4.8-10.8)
[2021-10-28 06:27] LABS: Alanine Aminotransferase 21 U/L (0-40); Alkaline Phosphatase 91 U/L (39-117); Anion Gap 12 (12-20); Aspartate Amino Transferase 20 U/L (5-37); Bilirubin Total 0.3 mg/dL (0.0-1.0); Blood Urea Nitrogen 38 mg/dL (9-16); Carbon Dioxide 26 mmol/L (22-29); Chloride 102 mmol/L (96-108); Estimated Glomerular Filt Rate > 60; Glucose Random 93 mg/dL (60-115); Potassium 4.5 mmol/L (3.3-5.1); Sodium 135 mmol/L (135-145)
== END 2021-10-28 05:51 | disposition home or self-care (01) ==
LOC: HO.MMNH2L 05:50
PROVIDERS: Visit Provider Family Medicine
DX: I10 Essential (primary) hypertension (principal)
CPT/HCPCS: 36415; 80053; 85025

== ENCOUNTER 2021-10-31 07:01 | Outpatient (REF) | payer MEDICARE, SELFPAY ==
[2021-10-31 06:16] LABS: MANUAL DIFF FLAG NO
[2021-10-31 06:45] LABS: Basophils Absolute Auto 0.1 X10*3/uL (0.0-0.2); Basophils Percent Auto 0.6 % (0-2); Eosinophils Absolute Auto 0.4 X10*3/uL (0.0-0.4); Eosinophils Percent Auto 5.3 % (0-4); Hematocrit 26.1 % (42.0-52.0); Hemoglobin 8.4 g/dl (14.0-18.0); Imm Gran Abs Auto 0.05 X10*3/uL (0.00-0.03); Imm Gran Pct Auto 0.6 % (0.0-0.4); Lymphocytes Absolute Auto 2.1 X10*3/uL (1.2-4.9); Lymphocytes Percent Auto 27.5 % (20-40); Mean Corpuscular HGB Conc 32.2 g/dl (31.0-36.0); Mean Corpuscular Hemoglobin 31.1 pg (27.0-33.0); Mean Corpuscular Volume 96.7 fL (80.0-98.0); Mean Platelet Volume 9.5 fL (9.4-12.4); Monocytes Absolute Auto 0.7 X10*3/uL (0.1-1.2); Monocytes Percent Auto 8.9 % (2-11); Neutrophils Absolute Auto 4.4 x10*3/uL (2.0-8.3); Neutrophils Percent Auto 57.1 % (45-73); Platelet Count 291 X10*3/uL (160-400); Red Cell Distribution Width 15.5 % (11.0-16.0); White Blood Count 7.8 X10*3/uL (4.8-10.8)
[2021-10-31 07:07] LABS: Anion Gap 11 (12-20); Blood Urea Nitrogen 31 mg/dL (9-16); Calcium 8.2 mg/dL (8.4-10.2); Carbon Dioxide 30 mmol/L (22-29); Chloride 99 mmol/L (96-108); Estimated Glomerular Filt Rate 55; Glucose Random 82 mg/dL (60-115); Potassium 4.7 mmol/L (3.3-5.1); Sodium 135 mmol/L (135-145)
== END 2021-10-31 07:02 | disposition home or self-care (01) ==
LOC: HO.MMNH2L 07:01
PROVIDERS: Visit Provider Family Medicine
DX: I10 Essential (primary) hypertension (principal)
CPT/HCPCS: 36415; 80048; 85025

== ENCOUNTER 2021-11-07 06:21 | Outpatient (REF) | payer MEDICARE, SELFPAY ==
[2021-11-07 06:24] LABS: MANUAL DIFF FLAG NO
[2021-11-07 06:56] LABS: Basophils Absolute Auto 0.1 X10*3/uL (0.0-0.2); Basophils Percent Auto 0.7 % (0-2); Eosinophils Absolute Auto 0.7 X10*3/uL (0.0-0.4); Eosinophils Percent Auto 9.7 % (0-4); Hematocrit 27.4 % (42.0-52.0); Hemoglobin 8.9 g/dl (14.0-18.0); Imm Gran Abs Auto 0.03 X10*3/uL (0.00-0.03); Imm Gran Pct Auto 0.4 % (0.0-0.4); Lymphocytes Absolute Auto 2.3 X10*3/uL (1.2-4.9); Lymphocytes Percent Auto 32.9 % (20-40); Mean Corpuscular HGB Conc 32.5 g/dl (31.0-36.0); Mean Corpuscular Hemoglobin 31.3 pg (27.0-33.0); Mean Corpuscular Volume 96.5 fL (80.0-98.0); Mean Platelet Volume 9.8 fL (9.4-12.4); Monocytes Absolute Auto 0.6 X10*3/uL (0.1-1.2); Monocytes Percent Auto 8.6 % (2-11); Neutrophils Absolute Auto 3.4 x10*3/uL (2.0-8.3); Neutrophils Percent Auto 47.7 % (45-73); Platelet Count 258 X10*3/uL (160-400); Red Blood Count 2.84 X10*6/uL (4.60-5.80); Red Cell Distribution Width 15.6 % (11.0-16.0); White Blood Count 7.1 X10*3/uL (4.8-10.8)
[2021-11-07 07:17] LABS: Anion Gap 12 (12-20); Blood Urea Nitrogen 32 mg/dL (9-16); Calcium 8.6 mg/dL (8.4-10.2); Carbon Dioxide 27 mmol/L (22-29); Chloride 102 mmol/L (96-108); Estimated Glomerular Filt Rate 52; Glucose Random 84 mg/dL (60-115); Potassium 4.9 mmol/L (3.3-5.1); Sodium 136 mmol/L (135-145)
== END 2021-11-07 06:22 | disposition home or self-care (01) ==
LOC: HO.MMNH2L 06:21
PROVIDERS: Visit Provider Family Medicine
DX: I10 Essential (primary) hypertension (principal)
CPT/HCPCS: 36415; 80048; 85025

== ENCOUNTER 2021-11-14 06:35 | Outpatient (REF) | payer MEDICARE, SELFPAY | END 2021-11-14 06:36 | disposition home or self-care (01) | LOC: HO.MMNH2L 06:35 | PROVIDERS: Visit Provider Family Medicine | DX: Z13.89 Encounter for screening for other disorder (principal) ==

== ENCOUNTER 2022-08-11 13:32 | Outpatient (REF) | payer MEDICARE, SELFPAY ==
[2022-08-11 17:22] LABS: Alanine Aminotransferase 14 U/L (0-40); Albumin Level 3.7 g/dL (3.5-5.0); Alkaline Phosphatase 98 U/L (39-117); Anion Gap 14 (12-20); Aspartate Amino Transferase 20 U/L (5-37); Bilirubin Direct 0.1 mg/dL (0.0-0.5); Bilirubin Total 0.4 mg/dL (0.0-1.0); Blood Urea Nitrogen 32 mg/dL (9-16); Carbon Dioxide 25 mmol/L (22-29); Chloride 107 mmol/L (96-108); Cholesterol 167 mg/dL; Estimated Glomerular Filt Rate 53; Glucose Random 116 mg/dL (60-115); HDL Cholesterol 41 mg/dL; Potassium 4.5 mmol/L (3.3-5.1); Sodium 141 mmol/L (135-145); Thyroid Stimulating Hormone 3.31 uIU/mL (0.32-4.0); Total Protein 7.1 g/dL (6.5-8.0)
[2022-08-16 15:48] LABS: LDL Cholesterol Calculated 110 mg/dl; Triglycerides 82 mg/dL
== END 2022-08-11 13:33 | disposition home or self-care (01) ==
LOC: HO.HMGCLDS 13:32
PROVIDERS: PCP Internal Medicine; Visit Provider Internal Medicine
DX: I10 Essential (primary) hypertension (principal); Z86.73 Personal history of transient ischemic attack (TIA), and cerebral infarction without residual deficits
CPT/HCPCS: 36415; 80048; 80061; 80076; 84443

== ENCOUNTER 2022-10-26 09:32 | Outpatient (AMB) | payer MEDICARE, SELFPAY ==
--- NOTE | 2022-10-26 09:38 | A.OFFPC_ITS ---
Vital Signs 10/26/22 09:40 Height 5 ft 10 in Weight 143 lb 2 oz BMI 20.5 BP 120/70 Blood Pressure Location Lt brachial Position Sitting Pulse 75 Pulse Source Pulse Oximeter Pulse Oximetry (%) 98 Oxygen Delivery Method Room Air Intake Visit Reasons: 3mth f/u Intake Note: Patient is here to follow up on CVA, Vascular Dementia, HTN, CRF. 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 Accompanied by: Son Allergies No Known Allergies Allergy (Verified 10/26/22 10:17) Medication List - Last Reconciled 10/26/22 by All Grullon MD acetaminophen 650 mg (2 x 325 mg) PO Q6H lactulose 15 mL PO DAILY levothyroxine 50 mcg PO DAILY lidocaine 4% (Lidocaine Pain Relief) 0 patches topical magnesium hydroxide (Milk of Magnesia) 30 mL PO BEDTIME PRN metoprolol tartrate 12.5 mg (1/2 x 25 mg) PO BID trazodone 25 mg (1/2 x 50 mg) PO DAILY Tobacco use date assessed: 10/26/22 Fall risk assessment: 1 Fall in past year Last assessed Fall Risk: 10/26/22 Dental Screening Dental Screen Date: 10/26/22 Did you have a dental visit in the last 12 months?: Yes Did you have a dental problem in the last 6 months where you did not have access to dental care?: No Was dental information given to patient?: Patient has dentist HPI 3mth f/u HPI Details 81-year-old male presents to the office to discuss his chronic medical conditions. He is accompanied by his son. Patient ambulates into the examining room using a walker. He reports he has no pain. Son reports that his memory and confusion is stable. He he has a good appetite and still comes to the dining table to eat. Needs assistance with shower. Sleeps well at night. He needs constant supervision. The son has several FMLA forms that need to be filled. [facility] Medical History Cellulitis Cerebrovascular accident (CVA) determined by clinical assessment Chronic renal failure, stage 3 (moderate) Essential hypertension Hypothyroid Normochromic normocytic anemia Surgical History History of hernia surgery History of surgery on arm Social History Household Members: Friend(s) Housing: House Are you a primary managed care liaison to a significant other at home: No Do you presently have visiting nurse or other home services: No Alcohol intake: former Patient Tobacco Use Status: Never used Tobacco e-Cigarette/Vaping Use: Never Used Second Hand Smoke Exposure: No service: Yes Current occupational status: retired Cognitive needs: Yes (Walker) Hearing needs: No Vision needs: Yes (glasses) Questionnaire Thrive Questionnaire Date Thrive assessed: 07/27/22 ANTHONY-7 AMB Questionnaire ANTHONY-7 Date ANTHONY - 7 assessed: 07/27/22 Source: Developed by Drs. Wilman Vargas, Odalys Billy, Troy Johnston and colleagues, with an educational francis from [employer]. Physical exam (Primary Care) Vital Signs: Last Vital Signs Pulse 75 10/26/22 09:40 BP 120/70 10/26/22 09:40 Pulse Ox 98 10/26/22 09:40 Oxygen Delivery Method Room Air 10/26/22 09:40 Care Plan Goal for BP management: Blood pressure is stable. Continue medications at same dosage. BMI result Body Mass Index 20.5 Tobacco/Smoking Status: Tobacco use Status Tobacco use date assessed 10/26/22 10/26/22 09:45 Patient Tobacco Use Status Never used Tobacco 10/26/22 09:45 e-Cigarette/Vaping Use Never Used 10/26/22 09:45 Thrive Assessment: Date of Thrive Assessment Date Thrive assessed 07/27/22 10/26/22 09:45 Forms completed: Comfort care/DNR Const General: cooperative, healthy appearing and comfortable Orientation/consciousness: oriented to person and oriented to place HENMT Head: Yes normal to inspection and Yes atraumatic Eyes General: appearance normal, both eyes and all related structures Neck Neck: Yes normal visual inspection and Yes full ROM Chest Chest palpation & inspection: normal inspection of the chest and crepitus Resp Effort & Inspection: normal respiratory effort Auscultation: clear to auscultation bilaterally Cardio Jugular venous distension: no JVD Palpation: normal PMI Rate: regular rate Heart sounds: S1 normal heart sound present and S2 normal heart sound present GI Palpation (GI): Soft to palpation, Tenderness to palpation present (GI) and No hepatosplenomegaly present Neuro Other: Patient could not recall the month or the year. General: oriented to person and oriented to place Extrem General: Yes normal to inspection and Yes full ROM Assessment and Plan Assessment & Plan (1) Hypothyroid: Code(s): E03.9 - Hypothyroidism, unspecified Plan: TSH is in range. Continue Synthroid at the same dosage. (2) Vascular dementia: Code(s): F01.50 - Vascular dementia, unspecified severity, without behavioral disturbance, psychotic disturbance, mood disturbance, and anxiety Plan: Dementia continues to be present and progressing. However at the moment patient is able to eat on his own. His son is taking good care of his personal hygiene and well-being. (3) Essential hypertension: Code(s): I10 - Essential (primary) hypertension (4) Chronic renal failure, stage 3 (moderate): Code(s): N18.30 - Chronic kidney disease, stage 3 unspecified Medications: Refilled metoprolol tartrate 12.5 mg (1/2 x 25 mg) PO BID 90 tabs 0RF Coding Level of Care Code Est Pt Level 4 (69213) Diagnoses Hypothyroid E03.9 Vascular dementia F01.50 Essential hypertension I10 Chronic renal failure, stage 3 (moderate) N18.30
[2022-10-26 09:40] VITALS: BP 120/70; PULSE 75; O2SAT 98; BMI 20.5
== END 2022-10-26 10:07 | disposition home or self-care (01) ==
PROVIDERS: Visit Provider Internal Medicine
DX: I12.9 Hypertensive chronic kidney disease with stage 1 through stage 4 chronic kidney disease, or unspecified chronic kidney disease (principal); N18.30 Chronic kidney disease, stage 3 unspecified; E03.9 Hypothyroidism, unspecified; F01.50 Vascular dementia, unspecified severity, without behavioral disturbance, psychotic disturbance, mood disturbance, and anxiety
CPT/HCPCS: 99214

== ENCOUNTER 2023-04-26 14:07 | Outpatient (AMB) | payer MEDICARE, SELFPAY ==
--- NOTE | 2023-04-26 14:10 | MHC.PC.OV ---
Vital Signs 04/26/23 14:13 Height 5 ft 10 in Weight 142 lb 3 oz BMI 20.4 BP 120/76 Blood Pressure Location Lt brachial Position Sitting Pulse 76 Pulse Source Pulse Oximeter Pulse Oximetry (%) 97 Oxygen Delivery Method Room Air Intake Visit Reasons: 6 month f/u Intake Note: Patient is here to follow up on Hypothyroid, CVA, HTN, Vascular Dementia. Ammunition Specialist Required: No Manufacturing Machine Operator: Present Accompanied by: Son Allergies No Known Allergies Allergy (Verified 04/26/23 14:40) Medication List - Last Reconciled 04/26/23 by All Grullon MD levothyroxine 50 mcg PO DAILY metoprolol tartrate 12.5 mg (1/2 x 25 mg) PO BID Tobacco use date assessed: 04/26/23 Fall risk assessment: No Falls in past year Last assessed Fall Risk: 04/26/23 Dental Screening Dental Screen Date: 04/26/23 Did you have a dental visit in the last 12 months?: Yes Did you have a dental problem in the last 6 months where you did not have access to dental care?: No Was dental information given to patient?: Patient has dentist HPI 6 month f/u HPI Details 82-year-old male presents to the office to discuss his medical condition. He is accompanied by his son. Patient is ambulating with a walker. Patient now does not make sense in his conversation. He is bringing up unrelated stuff. The son reports that the patient is eating well. He is incontinent to urine. Sleeping well at night. They have discontinued all the psych medications as his sleep patterns are normal. [facility] Medical History Cellulitis Cerebrovascular accident (CVA) determined by clinical assessment Chronic renal failure, stage 3 (moderate) Essential hypertension Hypothyroid Normochromic normocytic anemia Surgical History History of hernia surgery History of surgery on arm Social History Household Members: Friend(s) Housing: House Are you a primary gericare aide teacher to a significant other at home: No Do you presently have visiting nurse or other home services: No Alcohol intake: former Patient Tobacco Use Status: Never used Tobacco e-Cigarette/Vaping Use: Never Used Second Hand Smoke Exposure: No service: Yes Current occupational status: retired Cognitive needs: Yes (Walker) Hearing needs: No Vision needs: Yes (glasses) Questionnaire PHQ-9 Over the last 2 weeks, how often have you been bothered by any of the following problems? 1. Little interest or pleasure in doing things: not at all 2. Feeling down, depressed, or hopeless: not at all 3. Trouble falling or staying asleep, or sleeping too much: not at all 4. Feeling tired or having little energy: not at all 5. Poor appetite or overeating: not at all 6. Feeling bad about yourself - or that you are a failure or have let yourself or your family down: not at all 7. Trouble concentrating on things, such as reading the newspaper or watching television: not at all 8. Moving or speaking so slowly that other people could have noticed. Or the opposite - being so fidgety or restless that you have been moving around a lot more than usual: not at all 9. Thoughts that you would be better off or of hurting yourself in some way: not at all Total score: 0 Depression Screening Interpretation: Negative Depression Screening Done: Yes Source: Developed by Drs. Wilman Vargas, Odalys Billy, Troy Johnston and colleagues, with an educational francis from [email or web address]. Thrive Questionnaire Date Thrive assessed: 04/26/23 I am a: Patient What is your living situation today?: I have a steady place to live Within the past 12 months, did the food you bought not last and you didn't have the money to get more?: Never true Within the past 12 months, did you worry whether your food would run out before you got money to buy more?: Never true Do you have trouble paying for medicines?: No Do you have trouble getting transportation to medical appointments?: No Do you have trouble paying your heating and electricity bill?: No Do you have trouble taking care of your child, family member or friend?: No Do you have trouble with day-to-day activities such as bathing, preparing meals, shopping, managing finances, etc.?: No Are you currently unemployed and looking for a job?: No Are you interested in more education?: No Currently or been in a relationship where the following occur: no concerns reported AUDIT C Alcohol Use Questionnaire (AUDIT-C) 1. How often do you have a drink containing alcohol?: Never Total Score: 0 ANTHONY-7 AMB Questionnaire ANTHONY-7 Date ANTHONY - 7 assessed: 04/26/23 Feeling nervous, anxious, or on edge: 0 = Not at all Not being able to stop or control worryin = Not at all Worrying too much about different things: 0 = Not at all Trouble relaxin = Not at all Being so restless that it is hard to sit still: 0 = Not at all Becoming easily annoyed or irritable: 0 = Not at all Feeling afraid as if something awful might happen: 0 = Not at all Total ANTHONY-7 score (0-4 normal; 5-9 mild; 10-14 moderate; 15-21 severe): 0 Source: Developed by Drs. Wilman Vargas, Odalys Billy, Troy Johnston and colleagues, with an educational francis from [email or web address]. Physical exam (Primary Care) Vital Signs: Last Vital Signs Pulse 76 04/26/23 14:13 BP 120/76 04/26/23 14:13 Pulse Ox 97 04/26/23 14:13 Oxygen Delivery Method Room Air 04/26/23 14:13 BMI result Body Mass Index 20.4 Tobacco/Smoking Status: Tobacco use Status Tobacco use date assessed 04/26/23 04/26/23 14:22 Patient Tobacco Use Status Never used Tobacco 04/26/23 14:22 e-Cigarette/Vaping Use Never Used 04/26/23 14:22 PHQ-9: PHQ-9 Score PHQ-9: Total score 0 04/26/23 14:22 Depression Screening Interpretation: Negative Thrive Assessment: Date of Thrive Assessment Date Thrive assessed 04/26/23 04/26/23 14:22 Currently or been in a relationship where the following occur: no concerns reported Const General: cooperative and healthy appearing Nutritional Appearance: well nourished Orientation/consciousness: patient oriented x3 Limitations: no limitations HENMT Head: Yes normal to inspection Eyes General: appearance normal, both eyes and all related structures Neck Neck: Yes normal visual inspection Chest Chest palpation & inspection: normal palpation of entire chest wall Resp Effort & Inspection: normal respiratory effort Neuro General: patient oriented x3 Assessment and Plan Assessment & Plan (1) Vascular dementia: Code(s): F01.50 - Vascular dementia, unspecified severity, without behavioral disturbance, psychotic disturbance, mood disturbance, and anxiety Plan: Condition has gotten worse. Patient no longer making sense. This is at his baseline. However he does not seem agitated nor in any distress. Continue the current medications. Orders: Orders Lipid Panel Today F01.50 - Vascular dementia, unspecified severity, without behavioral disturbance, psychotic disturbance, mood disturbance, and anxiety Basic Metabolic Panel Today F01.50 - Vascular dementia, unspecified severity, without behavioral disturbance, psychotic disturbance, mood disturbance, and anxiety Complete Blood Count no Diff Today F01.50 - Vascular dementia, unspecified severity, without behavioral disturbance, psychotic disturbance, mood disturbance, and anxiety Liver Panel Today F01.50 - Vascular dementia, unspecified severity, without behavioral disturbance, psychotic disturbance, mood disturbance, and anxiety Thyroid Stimulating Hormone Today F01.50 - Vascular dementia, unspecified severity, without behavioral disturbance, psychotic disturbance, mood disturbance, and anxiety Medications: Discontinued acetaminophen Discontinued Reason: Doctor's Order 650 mg (2 x 325 mg) PO Q6H 90 tabs 1RF lactulose Discontinued Reason: Doctor's Order 15 mL PO DAILY 946 mL 0RF trazodone Discontinued Reason: Doctor's Order 25 mg (1/2 x 50 mg) PO DAILY 90 tabs 1RF Coding Level of Care Code Est Pt Level 3 (27744) Diagnoses Vascular dementia F01.50
[2023-04-26 14:13] VITALS: BP 120/76; PULSE 76; O2SAT 97; BMI 20.4
== END 2023-04-26 14:36 | disposition home or self-care (01) ==
PROVIDERS: PCP Internal Medicine; Visit Provider Internal Medicine
DX: F01.50 Vascular dementia, unspecified severity, without behavioral disturbance, psychotic disturbance, mood disturbance, and anxiety (principal)
CPT/HCPCS: 99213

== ENCOUNTER 2023-04-26 14:45 | Outpatient (REF) | payer MEDICARE, SELFPAY ==
[2023-04-26 15:25] LABS: Hematocrit 34.7 % (42.0-52.0); Hemoglobin 10.9 g/dl (14.0-18.0); Mean Corpuscular HGB Conc 31.4 g/dl (31.0-36.0); Mean Corpuscular Hemoglobin 31.7 pg (27.0-33.0); Mean Corpuscular Volume 100.9 fL (80.0-98.0); Mean Platelet Volume 9.5 fL (9.4-12.4); Platelet Count 249 X10*3/uL (160-400); Red Blood Count 3.44 X10*6/uL (4.60-5.80); Red Cell Distribution Width 13.9 % (11.0-16.0); White Blood Count 11.8 X10*3/uL (4.8-10.8)
[2023-04-26 16:11] LABS: Alanine Aminotransferase 14 U/L (0-40); Albumin Level 4.1 g/dL (3.5-5.0); Alkaline Phosphatase 97 U/L (39-117); Anion Gap 13 (12-20); Aspartate Amino Transferase 21 U/L (5-37); Bilirubin Direct 0.1 mg/dL (0.0-0.5); Bilirubin Total 0.3 mg/dL (0.0-1.0); Blood Urea Nitrogen 43 mg/dL (9-16); Calcium 9.6 mg/dL (8.4-10.2); Carbon Dioxide 25 mmol/L (22-29); Chloride 109 mmol/L (96-108); Cholesterol 174 mg/dL (<200); Estimated Glomerular Filt Rate 51; Glucose Random 110 mg/dL (60-115); HDL Cholesterol 51 mg/dL (>40); LDL Cholesterol Calculated 109 mg/dL (<100); Potassium 4.9 mmol/L (3.3-5.1); Sodium 142 mmol/L (135-145); Triglycerides 73 mg/dL (<150)
[2023-04-26 16:28] LABS: Thyroid Stimulating Hormone 6.03 uIU/mL (0.32-4.0)
== END 2023-04-26 14:46 | disposition home or self-care (01) ==
LOC: HO.LAB 14:45
PROVIDERS: PCP Internal Medicine; Visit Provider Internal Medicine
DX: F01.50 Vascular dementia, unspecified severity, without behavioral disturbance, psychotic disturbance, mood disturbance, and anxiety (principal)
CPT/HCPCS: 36415; 80048; 80061; 80076; 84443; 85027

== ENCOUNTER 2023-10-02 10:57 | Outpatient (AMB) | payer MEDICARE, SELFPAY ==
--- NOTE | 2023-10-02 10:58 | A.OFFPC_ITS ---
Intake Visit Reasons: Declining, sore in mouth, body aches,change in med Intake Note: Patient is here to follow up on declinging, sore in mouth, body ache, med review. Hematologist Oncologist Required: No Transformer Maker: Present Accompanied by: Son Allergies No Known Allergies Allergy (Verified 10/02/23 10:58) Tobacco use date assessed: 10/02/23 Fall risk assessment: No Falls in past year Last assessed Fall Risk: 10/02/23 Dental Screening Dental Screen Date: 04/26/23 HPI Declining, sore in mouth, body aches,change in med HPI Details 82-year-old male wishes to discuss his m edical health via [employer]. His son is speaking on his father's behalf. Patient is no longer able to maintain conversations with strangers or family members that are meaningful. He rambles, and at times is moaning. Has no teeth and therefore on a very soft diet. Able to feed himself. Needs assistance with the bathroom and shower. He needs to be reminded to use the toilet frequently. At times, especially at night he becomes agitated. Patient needs constant supervision. The son is reporting that Haldol at the current dosage sometimes is not enough. Also if they could get something stronger for the pain. [facility] Medical History Cerebrovascular accident (CVA) determined by clinical assessment Hypothyroid Normochromic normocytic anemia Chronic renal failure, stage 3 (moderate) Essential hypertension Cellulitis Surgical History History of hernia surgery History of surgery on arm Social History Household Members: Friend(s) Housing: House Are you a primary resident care director to a significant other at home: No Do you presently have visiting nurse or other home services: No Alcohol intake: former Patient Tobacco Use Status: Never used Tobacco e-Cigarette/Vaping Use: Never Used Second Hand Smoke Exposure: No service: Yes Current occupational status: retired Cognitive needs: Yes (Walker) Hearing needs: No Vision needs: Yes (glasses) Questionnaire Thrive Questionnaire Date Thrive assessed: 04/26/23 ANTHONY-7 AMB Questionnaire ANTHONY-7 Date ANTHONY - 7 assessed: 04/26/23 Source: Developed by Drs. Wilman Vargas, Odalys Billy, Troy Johnston and colleagues, with an educational francis from [employer]. Review of Systems Const Unobtainable due to mental condition and Unobtainable due to mental status Physical exam (Primary Care) Tobacco/Smoking Status: Tobacco use Status Tobacco use date assessed 10/02/23 10/02/23 11:01 Patient Tobacco Use Status Never used Tobacco 10/02/23 11:01 e-Cigarette/Vaping Use Never Used 10/02/23 11:01 Thrive Assessment: Date of Thrive Assessment Date Thrive assessed 04/26/23 10/02/23 11:01 Telehealth Telehealth Telehealth Platform: Telephone Location of provider rendering services: practice address Location of patient: address on file Patient Identification confirmed using: Name, : Yes Telehealth method: voice only Patient verbally consented to treatment: Yes Patient verbally consented to billing insurance company: Yes Patient informed of any privacy concerns related to visit: Yes Minutes spent on Phone/Video with Pt.: 20 Assessment and Plan Assessment & Plan (1) Cerebrovascular accident (CVA) determined by clinical assessment: Code(s): I63.9 - Cerebral infarction, unspecified Plan: Dementia is rapidly progressing. I advised the son to give extra Haldol doses if necessary. To use the prescribed dose when patient appears to be calm. Tramadol p.r.n. has been ordered for instances when patient appears to be in pain. Discussed with son at length about hospice services. Introduce the concept to the son. He has the healthcare proxy and has agreed for the same. (2) Chronic renal failure, stage 3 (moderate): Code(s): N18.30 - Chronic kidney disease, stage 3 unspecified Plan: Unable to bring patient to the lab to get blood work done. Coding Level of Care Code Tele Est Pt Level 4 (69765) Complex EM visit Add On G2211 Diagnoses Cerebrovascular accident (CVA) determined by clinical assessment I63.9 Chronic renal failure, stage 3 (moderate) N18.30
== END 2023-10-02 12:38 | disposition home or self-care (01) ==
PROVIDERS: PCP Internal Medicine; Visit Provider Internal Medicine
DX: F01.50 Vascular dementia, unspecified severity, without behavioral disturbance, psychotic disturbance, mood disturbance, and anxiety (principal); I12.9 Hypertensive chronic kidney disease with stage 1 through stage 4 chronic kidney disease, or unspecified chronic kidney disease; N18.30 Chronic kidney disease, stage 3 unspecified
CPT/HCPCS: 99442

== ENCOUNTER 2024-04-24 15:51 | Outpatient (AMB) | payer MEDICARE, SELFPAY ==
--- NOTE | 2024-04-24 15:51 | MHC.PC.OV ---
Intake Visit Reasons: 6 month f/u [phone] Intake Note: Patient is here to follow up on CRF, Vascular Dementia, HTN. Lollypop Machine Operator Required: No Carry In Worker: Not Required per policy Accompanied by: Son Allergies No Known Allergies Allergy (Verified 10/02/23 10:58) Tobacco use date assessed: 10/02/23 Fall risk assessment: 1 Fall in past year Last assessed Fall Risk: 04/24/24 Dental Screening Dental Screen Date: 04/26/23 Did you have a dental visit in the last 12 months?: No Did you have a dental problem in the last 6 months where you did not have access to dental care?: No Was dental information given to patient?: No [facility] Medical History Cerebrovascular accident (CVA) determined by clinical assessment Hypothyroid Normochromic normocytic anemia Chronic renal failure, stage 3 (moderate) Essential hypertension Cellulitis Surgical History (Updated 04/24/24 @ 15:56 by Shaun Duarte [facility]) History of tooth extraction History of hernia surgery History of surgery on arm Social History Household Members: Friend(s) Housing: House Are you a primary critical care nurse practitioner to a significant other at home: No Do you presently have visiting nurse or other home services: No Alcohol intake: former Patient Tobacco Use Status: Never used Tobacco e-Cigarette/Vaping Use: Never Used Second Hand Smoke Exposure: No service: Yes Current occupational status: retired Cognitive needs: Yes (Walker) Hearing needs: No Vision needs: Yes (glasses) Questionnaire Thrive Questionnaire Date Thrive assessed: 04/24/24 I am a: Patient What is your living situation today?: I have a steady place to live Within the past 12 months, did the food you bought not last and you didn't have the money to get more?: Never true Within the past 12 months, did you worry whether your food would run out before you got money to buy more?: Never true Do you have trouble paying for medicines?: No Do you have trouble getting transportation to medical appointments?: No Do you have trouble paying your heating and electricity bill?: No Do you have trouble taking care of your child, family member or friend?: No Do you have trouble with day-to-day activities such as bathing, preparing meals, shopping, managing finances, etc.?: No Are you currently unemployed and looking for a job?: No Are you interested in more education?: No Please select the resources that you would like help with: None Currently or been in a relationship where the following occur: No concerns reported THRIVE Score: 0 AUDIT C Alcohol Use Questionnaire (AUDIT-C) 1. How often do you have a drink containing alcohol?: Never Total Score: 0 ANTHONY-7 AMB Questionnaire ANTHONY-7 Date ANTHONY - 7 assessed: 04/24/24 Feeling nervous, anxious, or on edge: 0 = Not at all Not being able to stop or control worryin = Not at all Worrying too much about different things: 0 = Not at all Trouble relaxin = Not at all Being so restless that it is hard to sit still: 0 = Not at all Becoming easily annoyed or irritable: 0 = Not at all Feeling afraid as if something awful might happen: 0 = Not at all Total ANTHONY-7 score (0-4 normal; 5-9 mild; 10-14 moderate; 15-21 severe): 0 Source: Developed by Drs. Wilman Vargas, Odalys Billy, Troy Johnston and colleagues, with an educational francis from [employer]. Physical exam (Primary Care) Tobacco/Smoking Status: Tobacco use Status Tobacco use date assessed 10/02/23 04/24/24 15:52 Patient Tobacco Use Status Never used Tobacco 04/24/24 15:52 e-Cigarette/Vaping Use Never Used 04/24/24 15:52 Thrive Assessment: Date of Thrive Assessment Date Thrive assessed 04/24/24 04/24/24 15:57 Currently or been in a relationship where the following occur: No concerns reported Telehealth Telehealth Telehealth Platform: Telephone Location of provider rendering services: practice address Location of patient: address on file Patient Identification confirmed using: Name, : Yes Telehealth method: voice only Patient verbally consented to treatment: Yes Patient verbally consented to billing insurance company: Yes Patient informed of any privacy concerns related to visit: Yes Coding Level of Care Code Est Pt Level 1 (36210) Diagnoses Vascular dementia F01.50 Assessment & Plan Assessment & Plan (1) Vascular dementia: Code(s): F01.50 - Vascular dementia, unspecified severity, without behavioral disturbance, psychotic disturbance, mood disturbance, and anxiety Category: Medical Plan: THis visit did not happen. No billing. No charges
== END 2024-04-24 17:17 | disposition home or self-care (01) ==
LOC: HO.HMCH 15:51
PROVIDERS: PCP Internal Medicine; Visit Provider Internal Medicine
DX: F01.50 Vascular dementia, unspecified severity, without behavioral disturbance, psychotic disturbance, mood disturbance, and anxiety (principal)

== ENCOUNTER → 2024-04-24 15:51 | Outpatient (BNVA) | payer MEDICARE, SELFPAY | PROVIDERS: PCP Internal Medicine; Visit Provider Internal Medicine | DX: F01.50 Vascular dementia, unspecified severity, without behavioral disturbance, psychotic disturbance, mood disturbance, and anxiety (principal) | CPT/HCPCS: 96127; 99211 ==

== ENCOUNTER 2024-05-01 15:20 | Outpatient (AMB) | payer MEDICARE, SELFPAY ==
--- NOTE | 2024-05-01 15:20 | A.OFFPC_ITS ---
Intake Visit Reasons: follow up Intake Note: Patient is here to follow up on Health. Processes Chemical Design Engineer Required: No Corporate Planning Manager: Present Accompanied by: Son Allergies No Known Allergies Allergy (Verified 05/01/24 15:21) Tobacco use date assessed: 05/01/24 Fall risk assessment: No Falls in past year Last assessed Fall Risk: 05/01/24 Dental Screening Dental Screen Date: 05/01/24 Did you have a dental visit in the last 12 months?: No Did you have a dental problem in the last 6 months where you did not have access to dental care?: No Was dental information given to patient?: No HPI follow up HPI Details 83-year-old male wishes to have a tele [facility] visit. Due to his advanced dementia, the son is speaking on his behalf. The son reports that patient is at baseline state of health. He has hired a private nurse and the VNA helps with the medications. Patient still is able to do some activities of daily living. He comes to the dinner table every day and has his meal. Continent to urine and feces most of the time. Occasionally goes out in a wheelchair pushed by his son. Unable to have conversations for more than a minute. On current medications, patient is calm and is sleeping well at night.. [facility] Medical History (Updated 05/02/24 @ 08:37 by All Grullon MD) Dementia Cerebrovascular accident (CVA) determined by clinical assessment Hypothyroid Normochromic normocytic anemia Chronic renal failure, stage 3 (moderate) Essential hypertension Cellulitis Surgical History History of tooth extraction History of hernia surgery History of surgery on arm Social History Household Members: Friend(s) Housing: House Are you a primary point of care specialist to a significant other at home: No Do you presently have visiting nurse or other home services: No Alcohol intake: former Patient Tobacco Use Status: Never used Tobacco e-Cigarette/Vaping Use: Never Used Second Hand Smoke Exposure: No service: Yes Current occupational status: retired Cognitive needs: Yes (Walker) Hearing needs: No Vision needs: Yes (glasses) Questionnaire Thrive Questionnaire Date Thrive assessed: 04/24/24 ANTHONY-7 AMB Questionnaire ANTHONY-7 Date ANTHONY - 7 assessed: 04/24/24 Source: Developed by Drs. Wilman Vagras, Odalys Billy, Troy Johnston and colleagues, with an educational francis from [employer]. Physical exam (Primary Care) Tobacco/Smoking Status: Tobacco use Status Tobacco use date assessed 05/01/24 05/01/24 15:22 Patient Tobacco Use Status Never used Tobacco 05/01/24 15:22 e-Cigarette/Vaping Use Never Used 05/01/24 15:22 Thrive Assessment: Date of Thrive Assessment Date Thrive assessed 04/24/24 05/01/24 15:22 Telehealth Telehealth Telehealth Platform: Zuki Location of provider rendering services: practice address Location of patient: address on file Patient Identification confirmed using: Name, : Yes Telehealth method: voice only Patient verbally consented to treatment: Yes Patient verbally consented to billing insurance company: Yes Patient informed of any privacy concerns related to visit: Yes Minutes spent on Phone/Video with Pt.: 15 Coding Level of Care Code Tele Est Pt Level 4 (43686) Diagnoses Dementia F03.90 Assessment & Plan Assessment & Plan (1) Dementia: Code(s): F03.90 - Unspecified dementia, unspecified severity, without behavioral disturbance, psychotic disturbance, mood disturbance, and anxiety Category: Medical Plan: Patient is at baseline state of health. The son would like minimal investigations. He is compliant with medications and reporting no side effects. Living will and healthcare proxy have been completed. Plan As above
== END 2024-05-01 16:51 | disposition home or self-care (01) ==
LOC: HO.HMCH 15:20
PROVIDERS: PCP Internal Medicine; Visit Provider Internal Medicine
DX: F03.90 Unspecified dementia, unspecified severity, without behavioral disturbance, psychotic disturbance, mood disturbance, and anxiety (principal)